=== PATIENT | male | born 1955 | race Caucasian/White ===

== ENCOUNTER 2018-07-09 13:07 | Observation (INO) | payer BC, OTHER ==
[2018-07-09] MEDS ORDERED: Sodium Chloride 0.9% 1,000 ML IV ONE (13:23)
--- NOTE | 2018-07-09 13:29 | EDM.PDOC ---
ED HPI GENERAL MEDICAL PROBLEM - General Chief Complaint: General Stated Complaint: CHEST PAIN Time Seen by Provider: 07/09/18 13:21 Source of Information: Reports: Patient History Limitations: Reports: No Limitations - History of Present Illness INITIAL COMMENTS - FREE TEXT/NARRATIVE: Patient is a 63-year-old gentleman who presents to the emergency department this afternoon via EMS secondary to a complaint of chest pain. Patient states that approximately 3 a.m. today, he woke up with chills and sweating, and decided to take a bath for relief. Patient states he was in the bathroom about 1 hour. Symptoms did not resolve. After that he noticed isolated chest pain to his left chest. Pain described as sharp and constant. Patient decided to take 1 nitroglycerin with mild relief. But then discomfort returned. Patient decided to contact EMS. Patient denies fever, shortness of breath, headache, pain radiation to neck or left upper extremity, abdominal pain, nausea, vomiting , diarrhea, blood in stool, out of country travel, or any change in medication. Patient has history of MO with placement of 5 cardiac stents over the past few years. Onset: Today, Sudden Onset Date: 07/09/18 Onset Time: 03:00 Duration: Improving Location: Reports: Chest Quality: Reports: Sharp Severity: Mild Improves with: Reports: Medication Worsens with: Reports: None Associated Symptoms: Reports: Diaphoresis Treatments COMPENSATION AND BENEFITS ADVISOR: Reports: Aspirin, Nitroglycerin, Oxygen Left Middle Chest Pain Score (Numeric/FACES): 5 - Related Data Allergies Allergy/AdvReac Type Severity Reaction Status Date / Time No Known Drug Allergies Allergy Other Verified 07/09/18 13:22 Home Meds: Home Meds Aspirin [Halfprin] 81 mg PO DAILY 07/09/18 [History] Calcium Carb & Citrate/Vit D3 [Citracal + D ER] 1 tab PO DAILY 07/09/18 [History ] Cholecalciferol (Vitamin D3) [Vitamin D3] 2,000 unit PO DAILY 07/09/18 [History] Cinnamon Bark [Cinnamon] 1,000 mg PO DAILY 07/09/18 [History] Empagliflozin [Jardiance] 10 mg PO DAILY 07/09/18 [History] Ferrous Sulfate 325 mg PO DAILY 07/09/18 [History] Insulin Glarg,Human.Rec.Analog [Lantus Solostar] 20 unit SUBCUT DAILY 07/09/18 [ History] Lisinopril 5 mg PO DAILY 07/09/18 [History] Magnesium Oxide 400 mg PO DAILY 07/09/18 [History] Multivit with Calcium,Iron,Min [One Daily Women's] 1 tab PO DAILY 07/09/18 [ History] Nitroglycerin 0.4 mg SL ASDIRECTED 07/09/18 [History] Omeprazole 20 mg PO DAILY 07/09/18 [History] Ozempic 0.5 mg SQ RAMACHANDRAN 07/09/18 [History] Pyridoxine HCl [Vitamin B-6] 100 mg PO DAILY 07/09/18 [History] Vitamin B Complex [B Complex] 1 tab PO DAILY 07/09/18 [History] Vitamin E Mixed [Vitamin E] 400 unit PO DAILY 07/09/18 [History] Zinc Gluconate [Elemental Zinc] 60 mg PO DAILY 07/09/18 [History] atorvaSTATin [Lipitor] 10 mg PO DAILY 07/09/18 [History] glipiZIDE [Glucotrol] 5 mg PO DAILY 07/09/18 [History] metFORMIN HCl [Glucophage XR] 2,000 mg PO DAILY 07/09/18 [History] ED ROS GENERAL - Review of Systems Review Of Systems: ROS reveals no pertinent complaints other than HPI. Constitutional: Reports: No Symptoms HEENT: Reports: No Symptoms Respiratory: Reports: No Symptoms Cardiovascular: Reports: Chest Pain Endocrine: Reports: No Symptoms GI/Abdominal: Reports: No Symptoms : Reports: No Symptoms Musculoskeletal: Reports: No Symptoms Skin: Reports: No Symptoms Neurological: Reports: No Symptoms Psychiatric: Reports: No Symptoms Hematologic/Lymphatic: Reports: No Symptoms Immunologic: Reports: No Symptoms ED EXAM, GENERAL - Physical Exam Exam: See Below Exam Limited By: No Limitations General Appearance: Alert, WD/WN, No Apparent Distress Nose: Normal Inspection, Normal Mucosa, No Blood Throat/Mouth: Normal Inspection, Normal Oropharynx, No Airway Compromise Head: Atraumatic, Normocephalic Neck: Normal Inspection, Supple, Non-Tender Respiratory/Chest: No Respiratory Distress, Lungs Clear, Normal Breath Sounds, No Accessory Muscle Use Cardiovascular: Regular Rate, Rhythm, No Murmur, No Rub GI/Abdominal: Normal Bowel Sounds, Soft, Non-Tender, No Organomegaly, No Distention, No Abnormal Bruit, No Mass Back Exam: Normal Inspection. No: CVA Tenderness (L), CVA Tenderness (R) Extremities: Normal Inspection, No Pedal Edema Neurological: Alert, Oriented, Normal Cognition Psychiatric: Normal Affect, Normal Mood Skin Exam: Warm, Dry, Intact, Normal Color, No Rash Course - Vital Signs Last Recorded V/S: Last Vital Signs Temp 99.9 F 07/09/18 13:18 Pulse 81 07/09/18 14:44 Resp 19 07/09/18 14:44 BP 102/46 L 07/09/18 14:44 Pulse Ox 98 07/09/18 14:44 - Orders/Labs/Meds Orders: Active Orders 24 hr Category Date Time Status EKG Documentation Completion [RC] ASDIRECTED Care 07/09/18 13:23 Ordered Peripheral IV Care [RC] . DIRECTED Care 07/09/18 13:23 Ordered CULTURE BLOOD [BC] Stat Lab 07/09/18 14:16 Ordered CULTURE BLOOD [BC] Stat Lab 07/09/18 14:16 Ordered Sodium Chloride 0.9% [Saline Flush] Med 07/09/18 13:23 Ordered 10 ml FLUSH Q8HR PRN Blood Culture x2 Reflex Set [OM.PC] Stat Oth 07/09/18 14:16 Ordered Peripheral IV Insertion Adult [OM.PC] Routine Oth 07/09/18 13:23 Ordered Medication Orders Sodium Chloride (Saline Flush) 10 ml FLUSH Q8HR PRN PRN Reason: keep vein open Labs: Laboratory Tests 07/09/18 07/09/18 07/09/18 Range/Units 13:20 13:20 13:20 WBC 11.91 H (5.00-10.00) 10^3/uL RBC 4.52 (4.50-6.00) 10^6/uL Hgb 14.1 (13.0-17.0) g/dL Hct 39.1 L (40.0-52.0) % MCV 86.5 (82.0-92.0) fL MCH 31.2 H (27.0-31.0) pg MCHC 36.1 H (32.0-36.0) g/dL RDW 11.9 (11.5-14.5) % Plt Count 122 L (150-400) 10^3/uL MPV 10.7 H (7.4-10.4) fL Immature Gran % (Auto) 0.2 (0.0-5.0) % Neut % (Auto) 89.3 H (50.0-70.0) % Lymph % (Auto) 2.9 L (20.0-40.0) % [place] % (Auto) 7.4 (2.0-8.0) % Eos % (Auto) 0.1 L (1.0-3.0) % Baso % (Auto) 0.1 (0.0-1.0) % Immature Gran # (Auto) 0.02 (0.00-0.50) 10^3/uL Neut # (Auto) 10.65 H (2.50-7.00) 10^3/uL Lymph # (Auto) 0.34 L (1.00-4.00) 10^3/uL [place] # (Auto) 0.88 H (0.10-0.80) 10^3/uL Eos # (Auto) 0.01 L (0.10-0.30) 10^3/uL Baso # (Auto) 0.01 (0.00-0.10) 10^3/uL PT 10.5 (8.9-11.4) SEC INR 1.0 (0.9-1.1) APTT 22.0 L (23.1-31.3) SEC Sodium 143 (136-145) mmol/L Potassium 3.7 (3.3-5.3) mmol/L Chloride 106 (98-115) mmol/L Carbon Dioxide 26.6 (21.0-32.0) mmol/L Anion Gap 14.1 (5-15) mmol/L BUN 19 (6-25) mg/dL Creatinine 1.17 (0.51-1.17) mg/dL Est Cr Clr Drug Dosing 69.09 mL/min Estimated GFR (MDRD) > 60 mL/min Glucose 153 H (75 - 99) mg/dL Calcium 8.7 (8.7-10.3) mg/dL Total Bilirubin 1.0 (0.2-1.0) mg/dL AST 33 (15-37) U/L ALT 27 (12-78) U/L Alkaline Phosphatase 57 (46-116) IU/L CK-MB (CK-2) 1.30 (0.00-4.30) ng/mL Troponin I 0.07 (0.00-0.070) ng/mL Total Protein 6.2 L (6.4-8.2) g/dL Albumin 3.40 (3.00-4.80) g/dL Lipase 79 (73-393) U/L Meds: Medications Generic Name Dose Route Start Last Admin Trade Name Freq PRN Reason Stop Dose Admin Sodium Chloride 10 ml 07/09/18 13:23 Saline Flush FLUSH Q8HR PRN keep vein open Discontinued Medications Generic Name Dose Route Start Last Admin Trade Name Freq PRN Reason Stop Dose Admin Acetaminophen 650 mg 07/09/18 14:21 Tylenol PO 07/09/18 14:22 NOW ONE Azithromycin 500 mg 07/09/18 14:16 Zithromax PO 07/09/18 14:17 ONETIME ONE Ceftriaxone Sodium 1 gm 07/09/18 14:16 Rocephin IVPUSH 07/09/18 14:17 ONETIME ONE Sodium Chloride 1,000 mls @ 999 mls/hr 07/09/18 13:23 07/09/18 13:28 Normal Saline IV 07/09/18 14:23 999 mls/hr .BOLUS ONE Administration - Radiology Interpretation Free Text/Narrative:: Chest x-ray shows moderate left lung infiltrates - Re-Assessments/Exams Free Text/Narrative Re-Assessment/Exam: 07/09/18 14:54 patient afebrile, vital signs stable, 1 g Rocephin IV and 500 mg by mouth Zithromax given. Discussed case with Dr. Walter valles and patient will be admitted for observation and followed. Departure - Departure Time of Disposition: 14:53 Disposition: Refer to Observation Condition: Fair Clinical Impression: Pneumonia - Discharge Information Referrals: PCP,Not In Area [Primary Care Provider] - Forms: ED Department Discharge - My Orders Last 24 Hours: My Active Orders 07/09/18 13:23 EKG Documentation Completion [RC] ASDIRECTED Peripheral IV Care [RC] . DIRECTED Sodium Chloride 0.9% [Saline Flush] 10 ml FLUSH Q8HR PRN Peripheral IV Insertion Adult [OM.PC] Routine 07/09/18 14:16 CULTURE BLOOD [BC] Stat CULTURE BLOOD [BC] Stat Blood Culture x2 Reflex Set [OM.PC] Stat - Assessment/Plan Last 24 Hours: My Active Orders 07/09/18 13:23 EKG Documentation Completion [RC] ASDIRECTED Peripheral IV Care [RC] . DIRECTED Sodium Chloride 0.9% [Saline Flush] 10 ml FLUSH Q8HR PRN Peripheral IV Insertion Adult [OM.PC] Routine 07/09/18 14:16 CULTURE BLOOD [BC] Stat CULTURE BLOOD [BC] Stat Blood Culture x2 Reflex Set [OM.PC] Stat Assessment:: Pneumonia Plan: Admit to observation for [facility]. Dr. Walter valles
[2018-07-09 13:56] LABS: ANION GAP 14.1 mmol/L (5-15); CHLORIDE,CL 106 mmol/L (98-115); SODIUM,NA 143 mmol/L (136-145)
--- NOTE | 2018-07-09 14:09 | CR ---
[id number] RAD/RAD Chest PA or AP 1V EXAM: FRONTAL CHEST INDICATION: Chest pain. COMPARISON: February 10, 2009. DISCUSSION: Mild to moderate left mid and lower lung infiltrates suggestive of pneumonia. Unless clinically indicated sooner, a 6 week follow-up examination is suggested after treatment to exclude other underlying pathology. Mild hypoinflation. Normal heart size. IMPRESSION: 1. Mild to moderate left lung infiltrates. Bj Leung MD 07/09/18 1070 Thank you for allowing us to participate in the care of your patient.
[2018-07-09] MEDS ORDERED: cefTRIAXone 1 GM Vial IVPUSH ONE (14:16)
[2018-07-09] MEDS ORDERED: Azithromycin 250 MG Tab PO ONE (14:16)
[2018-07-09] MEDS ORDERED: Acetaminophen 325 MG Tab PO ONE (14:21)
[2018-07-09] MEDS: Sodium Chloride 0.9% 10 ML Syringe FLUSH PRN (15:26)
[2018-07-09] MEDS ORDERED: Nitroglycerin 0.4 MG Tab.SL SL PRN (18:30)
[2018-07-09] MEDS ORDERED: Lidocaine 2% 100 MG/5 ML Syringe IVPUSH PRN (22:56)
[2018-07-09] MEDS ORDERED: EPINEPHrine 1:10,000 1 MG/10 ML Syringe IVPUSH PRN (22:56)
[2018-07-09] MEDS ORDERED: Atropine 0.1 MG/ML 10 ML Syringe IVPUSH PRN (22:56)
[2018-07-10] MEDS ORDERED: Omeprazole 20 MG Cap.CR PO SCH (07:30)
[2018-07-10 08:06] LABS: ANION GAP 12.1 mmol/L (5-15); CHLORIDE,CL 105 mmol/L (98-115); SODIUM,NA 142 mmol/L (136-145)
[2018-07-10] MEDS: Insulin Aspart 100 Units/ML 3 ML Pen SUBCUT SCH ×2 (08:19→12:13)
[2018-07-10] MEDS: Sodium Chloride 0.9% 10 ML Syringe FLUSH PRN (08:33)
[2018-07-10] MEDS ORDERED: Magnesium Oxide 500 MG Tab PO SCH (09:00)
[2018-07-10] MEDS ORDERED: Lisinopril 5 MG Tab PO SCH (09:00)
[2018-07-10] MEDS ORDERED: Insulin Detemir 100 Units/ML 3 ML Pen SUBCUT SCH (09:00)
[2018-07-10] MEDS ORDERED: Non-Formulary Medication 1 Each (Magnesium Oxide [Magnesium Oxide] 400 MG) PO SCH (09:00)
[2018-07-10] MEDS ORDERED: Aspirin 81 MG Tab.EC PO SCH (09:00)
[2018-07-10] MEDS ORDERED: atorvaSTATin 10 MG Tab PO SCH (09:00)
[2018-07-10] MEDS ORDERED: Non-Formulary Medication 1 Each (Empagliflozin [Jardiance] 10 MG) PO SCH (09:00)
[2018-07-10] MEDS ORDERED: Ferrous Sulfate 325 MG Tab PO SCH (09:00)
--- NOTE | 2018-07-10 11:25 | PCM.HP ---
H&P History of Present Illness - General Date of Service: 07/10/18 Admit Problem/Dx: Admission Diagnosis/Problem Admission Diagnosis/Problem Pneumonia Source of Information: Patient, Old Records, RN History Limitations: Reports: No Limitations - History of Present Illness Initial Comments - Free Text/Narative: 63-year-old gentleman who presents to the emergency department this afternoon via EMS on the day of admission initially due to chest pain. Is diagnosed with pneumonia and was admitted. Patient stated he woke up assessor hours Thinking he was having a hypoglycemic reaction because he was having some diaphoresis, chest pain, extreme weakness, took his blood sugar it was 220, took long bath to warm up. He described his chest pain as sharp and constant-- took 1 nitroglycerin with mild relief, however then discomfort returned necessitating him calling EMS. Patient denies fever, shortness of breath, headache, pain radiation to neck or left upper extremity, abdominal pain, nausea , vomiting, diarrhea, blood in stool, out of country travel, or any change in medication. Patient has history of TX with placement of 5 cardiac stents over the past few years. Left Middle Chest Pain Score (Numeric/FACES): 7 - Related Data Allergies/Adverse Reactions: Allergies Allergy/AdvReac Type Severity Reaction Status Date / Time No Known Drug Allergies Allergy Other Verified 07/09/18 13:22 Home Medications: Home Meds Aspirin [Halfprin] 81 mg PO DAILY 07/09/18 [History] Calcium Carb & Citrate/Vit D3 [Citracal + D ER] 1 tab PO DAILY 07/09/18 [History ] Cholecalciferol (Vitamin D3) [Vitamin D3] 2,000 unit PO DAILY 07/09/18 [History] Cinnamon Bark [Cinnamon] 1,000 mg PO DAILY 07/09/18 [History] Empagliflozin [Jardiance] 10 mg PO DAILY 07/09/18 [History] Ferrous Sulfate 325 mg PO DAILY 07/09/18 [History] Insulin Glarg,Human.Rec.Analog [Lantus Solostar] 20 unit SUBCUT DAILY 07/09/18 [ History] Lisinopril 5 mg PO DAILY 07/09/18 [History] Magnesium Oxide 400 mg PO DAILY 07/09/18 [History] Multivit with Calcium,Iron,Min [One Daily Women's] 1 tab PO DAILY 07/09/18 [ History] Nitroglycerin 0.4 mg SL ASDIRECTED 07/09/18 [History] Omeprazole 20 mg PO DAILY 07/09/18 [History] Ozempic 0.5 mg SQ RAMACHANDRAN 07/09/18 [History] Pyridoxine HCl [Vitamin B-6] 100 mg PO DAILY 07/09/18 [History] Vitamin B Complex [B Complex] 1 tab PO DAILY 07/09/18 [History] Vitamin E Mixed [Vitamin E] 400 unit PO DAILY 07/09/18 [History] Zinc Gluconate [Elemental Zinc] 60 mg PO DAILY 07/09/18 [History] atorvaSTATin [Lipitor] 10 mg PO DAILY 07/09/18 [History] glipiZIDE [Glucotrol] 5 mg PO DAILY 07/09/18 [History] metFORMIN HCl [Glucophage XR] 2,000 mg PO DAILY 07/09/18 [History] Past Medical History HEENT History: Reports: Cataract Cardiovascular History: Reports: Hypertension, TX, Stents Respiratory History: Reports: None Gastrointestinal History: Reports: GERD, GI Bleed Genitourinary History: Reports: None Musculoskeletal History: Reports: Arthritis Neurological History: Reports: None Endocrine/Metabolic History: Reports: Diabetes, Type II Hematologic History: Reports: Blood Transfusion(s) Immunologic History: Reports: None Oncologic (Cancer) History: Reports: Other (See Below) Other Oncologic History: Melanoma - Infectious Disease History Infectious Disease History: Reports: Chicken Pox, Measles - Past Surgical History HEENT Surgical History: Reports: Cataract Surgery Cardiovascular Surgical History: Reports: Coronary Artery Stent Respiratory Surgical History: Reports: None GI Surgical History: Reports: Cholecystectomy, Colonoscopy, EGD, Other (See Below) Other GI Surgeries/Procedures: Gastric bypass Neurological Surgical History: Reports: None Musculoskeletal Surgical History: Reports: Other (See Below) Other Musculoskeletal Surgeries/Procedures:: Trigger finger surgery to right Dermatological Surgical History: Reports: None Social & Family History - Family History Family Medical History: Noncontributory - Tobacco Use Smoking Status *Q: Never Smoker - Caffeine Use Caffeine Use: Reports: Coffee, Soda, Tea - Alcohol Use Days Per Week of Alcohol Use: 1 Number of Drinks Per Day: 3 Total Drinks Per Week: 3 - Recreational Drug Use Recreational Drug Use: No H&P Review of Systems - Review of Systems: Review Of Systems: See Below General: Reports: No Symptoms HEENT: Reports: No Symptoms Pulmonary: Reports: No Symptoms Cardiovascular: Reports: No Symptoms Gastrointestinal: Reports: No Symptoms Genitourinary: Reports: No Symptoms Musculoskeletal: Reports: No Symptoms Skin: Reports: No Symptoms Psychiatric: Reports: No Symptoms Neurological: Reports: No Symptoms Hematologic/Lymphatic: Reports: No Symptoms Immunologic: Reports: No Symptoms Exam - Exam Exam: See Below - Vital Signs Vital Signs: Last Vital Signs Temp 98.1 F 07/10/18 06:49 Pulse 65 07/10/18 06:49 Resp 20 07/10/18 06:49 BP 109/64 07/10/18 08:31 Pulse Ox 96 07/10/18 07:40 Weight: 181 lb 14.4 oz - Exam Quality Assessment: No: Supplemental Oxygen, DVT Prophylaxis General: Alert, Oriented, 4 HEENT: Mucosa Moist & [place] Neck: Supple, Trachea Midline, 2 Lungs: Clear to Auscultation, Normal Respiratory Effort Cardiovascular: Regular Rate, Regular Rhythm GI/Abdominal Exam: Normal Bowel Sounds, Soft, No Distention (Male) Exam: Deferred Rectal (Males) Exam: Deferred Back Exam: No: CVA Tenderness (L) Extremities: No: Pedal Edema Skin: Warm, Dry, Intact Neurological: Cranial Nerves Intact, Normal Speech, Normal Tone Neuro Extensive - Mental Status: Alert Neuro Extensive - Motor, Sensory, Reflexes: CN II-XII Intact Psychiatric: Alert, Normal Affect, Normal Mood - Patient Data Lab Results Last 24 hrs: Laboratory Results - last 24 hr 07/09/18 07/09/18 07/09/18 Range/Units 13:20 13:20 13:20 WBC 11.91 H (5.00-10.00) 10^3/uL RBC 4.52 (4.50-6.00) 10^6/uL Hgb 14.1 (13.0-17.0) g/dL Hct 39.1 L (40.0-52.0) % MCV 86.5 (82.0-92.0) fL MCH 31.2 H (27.0-31.0) pg MCHC 36.1 H (32.0-36.0) g/dL RDW 11.9 (11.5-14.5) % Plt Count 122 L (150-400) 10^3/uL MPV 10.7 H (7.4-10.4) fL Immature Gran % (Auto) 0.2 (0.0-5.0) % Neut % (Auto) 89.3 H (50.0-70.0) % Lymph % (Auto) 2.9 L (20.0-40.0) % [place] % (Auto) 7.4 (2.0-8.0) % Eos % (Auto) 0.1 L (1.0-3.0) % Baso % (Auto) 0.1 (0.0-1.0) % Immature Gran # (Auto) 0.02 (0.00-0.50) 10^3/uL Neut # (Auto) 10.65 H (2.50-7.00) 10^3/uL Lymph # (Auto) 0.34 L (1.00-4.00) 10^3/uL [place] # (Auto) 0.88 H (0.10-0.80) 10^3/uL Eos # (Auto) 0.01 L (0.10-0.30) 10^3/uL Baso # (Auto) 0.01 (0.00-0.10) 10^3/uL PT 10.5 (8.9-11.4) SEC INR 1.0 (0.9-1.1) APTT 22.0 L (23.1-31.3) SEC Sodium 143 (136-145) mmol/L Potassium 3.7 (3.3-5.3) mmol/L Chloride 106 (98-115) mmol/L Carbon Dioxide 26.6 (21.0-32.0) mmol/L Anion Gap 14.1 (5-15) mmol/L BUN 19 (6-25) mg/dL Creatinine 1.17 (0.51-1.17) mg/dL Est Cr Clr Drug Dosing 69.09 mL/min Estimated GFR (MDRD) > 60 mL/min Glucose 153 H (75 - 99) mg/dL POC Glucose (74-106) mg/dl Calcium 8.7 (8.7-10.3) mg/dL Total Bilirubin 1.0 (0.2-1.0) mg/dL AST 33 (15-37) U/L ALT 27 (12-78) U/L Alkaline Phosphatase 57 (46-116) IU/L CK-MB (CK-2) 1.30 (0.00-4.30) ng/mL Troponin I 0.07 (0.00-0.070) ng/mL Total Protein 6.2 L (6.4-8.2) g/dL Albumin 3.40 (3.00-4.80) g/dL Lipase 79 (73-393) U/L 07/09/18 07/09/18 07/10/18 Range/Units 19:02 22:17 07:10 WBC 15.98 H (5.00-10.00) 10^3/uL RBC 4.46 L (4.50-6.00) 10^6/uL Hgb 13.8 (13.0-17.0) g/dL Hct 39.6 L (40.0-52.0) % MCV 88.8 (82.0-92.0) fL MCH 30.9 (27.0-31.0) pg MCHC 34.8 (32.0-36.0) g/dL RDW 12.8 (11.5-14.5) % Plt Count 133 L (150-400) 10^3/uL MPV 11.0 H (7.4-10.4) fL Immature Gran % (Auto) 2.1 (0.0-5.0) % Neut % (Auto) 85.4 H (50.0-70.0) % Lymph % (Auto) 8.4 L (20.0-40.0) % [place] % (Auto) 3.4 (2.0-8.0) % Eos % (Auto) 0.6 L (1.0-3.0) % Baso % (Auto) 0.1 (0.0-1.0) % Immature Gran # (Auto) 0.34 (0.00-0.50) 10^3/uL Neut # (Auto) 13.63 H (2.50-7.00) 10^3/uL Lymph # (Auto) 1.34 (1.00-4.00) 10^3/uL [place] # (Auto) 0.55 (0.10-0.80) 10^3/uL Eos # (Auto) 0.10 (0.10-0.30) 10^3/uL Baso # (Auto) 0.02 (0.00-0.10) 10^3/uL PT (8.9-11.4) SEC INR (0.9-1.1) APTT (23.1-31.3) SEC Sodium (136-145) mmol/L Potassium (3.3-5.3) mmol/L Chloride (98-115) mmol/L Carbon Dioxide (21.0-32.0) mmol/L Anion Gap (5-15) mmol/L BUN (6-25) mg/dL Creatinine (0.51-1.17) mg/dL Est Cr Clr Drug Dosing mL/min Estimated GFR (MDRD) mL/min Glucose (75 - 99) mg/dL POC Glucose 233 H (74-106) mg/dl Calcium (8.7-10.3) mg/dL Total Bilirubin (0.2-1.0) mg/dL AST (15-37) U/L ALT (12-78) U/L Alkaline Phosphatase (46-116) IU/L CK-MB (CK-2) (0.00-4.30) ng/mL Troponin I 0.06 (0.00-0.070) ng/mL Total Protein (6.4-8.2) g/dL Albumin (3.00-4.80) g/dL Lipase (73-393) U/L 07/10/18 07/10/18 Range/Units 07:10 07:20 WBC (5.00-10.00) 10^3/uL RBC (4.50-6.00) 10^6/uL Hgb (13.0-17.0) g/dL Hct (40.0-52.0) % MCV (82.0-92.0) fL MCH (27.0-31.0) pg MCHC (32.0-36.0) g/dL RDW (11.5-14.5) % Plt Count (150-400) 10^3/uL MPV (7.4-10.4) fL Immature Gran % (Auto) (0.0-5.0) % Neut % (Auto) (50.0-70.0) % Lymph % (Auto) (20.0-40.0) % [place] % (Auto) (2.0-8.0) % Eos % (Auto) (1.0-3.0) % Baso % (Auto) (0.0-1.0) % Immature Gran # (Auto) (0.00-0.50) 10^3/uL Neut # (Auto) (2.50-7.00) 10^3/uL Lymph # (Auto) (1.00-4.00) 10^3/uL [place] # (Auto) (0.10-0.80) 10^3/uL Eos # (Auto) (0.10-0.30) 10^3/uL Baso # (Auto) (0.00-0.10) 10^3/uL PT (8.9-11.4) SEC INR (0.9-1.1) APTT (23.1-31.3) SEC Sodium 142 (136-145) mmol/L Potassium 4.3 (3.3-5.3) mmol/L Chloride 105 (98-115) mmol/L Carbon Dioxide 29.2 (21.0-32.0) mmol/L Anion Gap 12.1 (5-15) mmol/L BUN 21 (6-25) mg/dL Creatinine 1.05 (0.51-1.17) mg/dL Est Cr Clr Drug Dosing 76.98 mL/min Estimated GFR (MDRD) > 60 mL/min Glucose 146 H (75 - 99) mg/dL POC Glucose 140 H (74-106) mg/dl Calcium 8.8 (8.7-10.3) mg/dL Total Bilirubin (0.2-1.0) mg/dL AST (15-37) U/L ALT (12-78) U/L Alkaline Phosphatase (46-116) IU/L CK-MB (CK-2) (0.00-4.30) ng/mL Troponin I 0.07 (0.00-0.070) ng/mL Total Protein (6.4-8.2) g/dL Albumin (3.00-4.80) g/dL Lipase (73-393) U/L Result Diagrams: 07/10/18 07:10 07/10/18 07:10 Problem List Initiated/Reviewed/Updated: Yes Orders Last 24hrs: Active Orders 24 hr Category Date Time Status Patient Status [ADT] Routine ADT 07/09/18 14:57 Ordered Blood Glucose Check, Bedside [RC] TIDMEALS Care 07/09/18 18:22 Active Oxygen Therapy [RC] PRN Care 07/09/18 14:57 Active Peripheral IV Care [RC] 0900,2100 Care 07/09/18 13:23 Active Telemetry Monitoring [Cardiac Monitoring] [RC] 0300, Care 07/09/18 18:23 Active 0700,1100,1500,1900,2300 VTE/DVT Education [RC] PER UNIT ROUTINE Care 07/09/18 14:57 Active Vital Signs [RC] 0700,1100,1500,1900,2300,0300 Care 07/09/18 14:57 Active ADA Diabetic [[place] [employer] Diet] [DIET Diet 07/10/18 Breakfast Active ] CULTURE BLOOD [BC] Stat Lab 07/09/18 14:25 Received CULTURE BLOOD [BC] Stat Lab 07/09/18 15:15 Received Aspirin [Halfprin] Med 07/10/18 09:00 Active 81 mg PO DAILY Atropine [Atropine 0.1 MG/ML] Med 07/09/18 22:56 Active 0 mg IVPUSH ASDIRECTED PRN EPINEPHrine [EPINEPHrine 1:10,000] Med 07/09/18 22:56 Active 1 mg IVPUSH ASDIRECTED PRN Empagliflozin [Jardiance] Med 07/10/18 09:00 Pending 10 mg PO DAILY Ferrous Sulfate Med 07/10/18 09:00 Active 325 mg PO DAILY Insulin Aspart [NovoLOG] Med 07/10/18 08:00 Active See Protocol SUBCUT TIDMEALS Insulin Detemir [Levemir] Med 07/10/18 09:00 Active 20 unit SUBCUT DAILY Lidocaine 2% [Xylocaine 2%] Med 07/09/18 22:56 Active 0 mg IVPUSH ASDIRECTED PRN Lisinopril [Prinivil] Med 07/10/18 09:00 Active 5 mg PO DAILY Magnesium Oxide Med 07/10/18 09:00 Active 500 mg PO DAILY Nitroglycerin [Nitrostat] Med 07/09/18 18:30 Active 0.4 mg SL ASDIRECTED PRN Omeprazole Med 07/10/18 07:30 Active 20 mg PO ACBREAKFAST Ozempic Med 07/14/18 18:20 Pending 0.5 mg SQ RAMACHANDRAN Sodium Chloride 0.9% [Saline Flush] Med 07/09/18 13:23 Active 10 ml FLUSH Q8HR PRN atorvaSTATin [Lipitor] Med 07/10/18 09:00 Active 10 mg PO DAILY cefTRIAXone [Rocephin] Med 07/10/18 11:45 Once 1 gm IVPUSH ONETIME ONE Blood Culture x2 Reflex Set [OM.PC] Stat Ot 07/09/18 14:16 Ordered Peripheral IV Insertion Adult [OM.PC] Routine Oth 07/09/18 13:23 Ordered Resuscitation Status Routine Resus Stat 07/09/18 14:57 Ordered Medication Orders Aspirin (Halfprin) 81 mg PO DAILY [facility] Last Admin: 07/10/18 08:31 Dose: 81 mg Atorvastatin Calcium (Lipitor) 10 mg PO DAILY [facility] Last Admin: 07/10/18 08:31 Dose: 10 mg Atropine Sulfate (Atropine 0.1 Mg/Ml) 0 mg IVPUSH ASDIRECTED PRN PRN Reason: Heart Ceftriaxone Sodium (Rocephin) 1 gm IVPUSH ONETIME ONE Stop: 07/10/18 11:46 Epinephrine HCl (Epinephrine 1:10,000) 1 mg IVPUSH ASDIRECTED PRN PRN Reason: Heart Ferrous Sulfate (Ferrous Sulfate) 325 mg PO DAILY [facility] Last Admin: 07/10/18 08:30 Dose: 325 mg Insulin Aspart (Novolog) 0 unit SUBCUT TIDMEALS [facility]; Protocol Last Admin: 07/10/18 08:19 Dose: Not Given Insulin Detemir (Levemir) 20 unit SUBCUT DAILY [facility] Last Admin: 07/10/18 08:31 Dose: 20 units Lidocaine HCl (Xylocaine 2%) 0 mg IVPUSH ASDIRECTED PRN PRN Reason: Heart Lisinopril (Prinivil) 5 mg PO DAILY [facility] Last Admin: 07/10/18 08:31 Dose: 5 mg Magnesium Oxide (Magnesium Oxide) 500 mg PO DAILY [facility] Last Admin: 07/10/18 08:30 Dose: 500 mg Nitroglycerin (Nitrostat) 0.4 mg SL ASDIRECTED PRN PRN Reason: Chest Pain Non-Formulary Medication (Empagliflozin [Jardiance]) 10 mg PO DAILY [facility] Non-Formulary Medication (Ozempic) 0.5 mg SQ RAMACHANDRAN [facility] Omeprazole (Omeprazole) 20 mg PO ACBREAKFAST [facility] Last Admin: 07/10/18 07:22 Dose: 20 mg Sodium Chloride (Saline Flush) 10 ml FLUSH Q8HR PRN PRN Reason: keep vein open Last Admin: 07/10/18 08:33 Dose: 10 ml Admin: 07/09/18 15:26 Dose: 10 ml Assessment/Plan Comment:: please use this history and physical as a combined H&P and discharge summary. BOTH WERE COMPLETED SAME DAY history of present illness 63-year-old gentleman who presents to the emergency department this afternoon via EMS on the day of admission initially due to chest pain. Is diagnosed with pneumonia and was admitted. Patient stated he woke up assessor hours Thinking he was having a hypoglycemic reaction because he was having some diaphoresis, chest pain, extreme weakness, took his blood sugar it was 220, took long bath to warm up. He described his chest pain as sharp and constant-- took 1 nitroglycerin with mild relief, however then discomfort returned necessitating him calling EMS. Patient denies fever, shortness of breath, headache, pain radiation to neck or left upper extremity, abdominal pain, nausea , vomiting, diarrhea, blood in stool, out of country travel, or any change in medication. Patient has history of TX with placement of 5 cardiac stents over the past few years. pertinent ED findings White count 12,000 Initial troponin negative Chest x-ray left lung infiltrate EKG, no concerning STEMI, no changes from previous Primary and final diagnosis Pneumonia, community-acquired, left lung Rule out TX, has been ruled out, hx of coronary stents hospital course Patient stayed overnight in the hospital, he received azithromycin and Rocephin. The next morning on rounds he felt 100% WITH NO CHEST PAIN< NO SHORTNESS OF BREATH< NO SPUTUM PRODUCTION<WAS DRESSED AND WAS READY TO BE DISCHARGE> He had no nausea vomiting or diarrhea. his white count did elevate to approximately 15,000 with neutrophilia was decreasing. troponins were trended and were normal 3. Patient tolerated his meals without vomiting. He is able to take oral antibiotics. blood cultures were drawn prior to the first antibiotic, pending upon discharge disposition Patient is in stable condition, ready to be discharge, discussion with him concerning follow-up tomorrow with Rocephin injection and follow-up with provider [place] [facility]. Appointments have been made. Rocephin ordered through [facility]. continue with azithromycin. He is to report any, diaphoresis or chest pain. Follow-up provider assess blood culture
[2018-07-10] MEDS ORDERED: cefTRIAXone 1 GM Vial IVPUSH ONE (11:45)
[2018-07-14] MEDS ORDERED: OZEMPIC 0.5 MG SQ SCH (18:20)
== END 2018-07-10 12:47 | disposition home or self-care (01) ==
LOC: KA.ED 13:07 → KA.MS 15:00
PROVIDERS: ADMIT Physician Assistant Surgical; ATTEND Family Medicine
DX: J18.1 Lobar pneumonia, unspecified organism (principal); I10 Essential (primary) hypertension; I25.2 Old myocardial infarction; E11.9 Type 2 diabetes mellitus without complications; K21.9 Gastro-esophageal reflux disease without esophagitis; M19.90 Unspecified osteoarthritis, unspecified site; Z95.5 Presence of coronary angioplasty implant and graft; Z79.4 Long term (current) use of insulin; Z79.899 Other long term (current) drug therapy
CPT/HCPCS: 36415; 71045; 80048; 80053; 82553; 82962; 83690; 84484; 85025; 85610; 85730; 87040; 93005; 96361; 96374; 96376; 99285; A9270; G0378; J0696; J1815; J7030

== ENCOUNTER 2018-07-29 07:08 | Emergency (ER) | payer OTHER ==
--- NOTE | 2018-07-29 07:42 | EDM.PDOC ---
ED HPI GENERAL MEDICAL PROBLEM - General Chief Complaint: Respiratory Problem Stated Complaint: WEAKNESS,SOB Time Seen by Provider: 07/29/18 07:30 Source of Information: Reports: Patient, Family History Limitations: Reports: No Limitations - History of Present Illness INITIAL COMMENTS - FREE TEXT/NARRATIVE: 63 YO WM presents to ER complaining of feeling chilled with weakness this am around 4am. Pt reports he got in the shower to warm up but started to feel worse prompting ER visit. Pt had similar symptoms 3 weeks ago and was diagnosed with CAP- left upper lobe. Pt reports productive cough which started yesterday with mild chest discomfort and mild shortness of breath. Pt denies diaphoresis, nausea/vomiting or lightheadedness. Pt reports he feels better than he did 3 weeks ago at which time he was hypoxic and much weaker. Pt was admitted for IV antibiotics at the time. Onset Date: 07/29/18 Duration: Hour(s): (4) Location: Reports: Chest Quality: Reports: Dull Severity: Mild Improves with: Reports: Rest Worsens with: Reports: Breathing, Movement Associated Symptoms: Reports: cough w sputum, Fever/Chills, Malaise, Shortness of Breath. Denies: Nausea/Vomiting - Related Data Allergies Allergy/AdvReac Type Severity Reaction Status Date / Time No Known Drug Allergies Allergy Other Verified 07/29/18 07:14 Home Meds: Home Meds Aspirin [Halfprin] 81 mg PO DAILY 07/09/18 [History] Calcium Carb & Citrate/Vit D3 [Citracal + D ER] 1 tab PO DAILY 07/09/18 [History ] Cholecalciferol (Vitamin D3) [Vitamin D3] 2,000 unit PO DAILY 07/09/18 [History] Cinnamon Bark [Cinnamon] 1,000 mg PO DAILY 07/09/18 [History] Empagliflozin [Jardiance] 10 mg PO DAILY 07/09/18 [History] Ferrous Sulfate 325 mg PO DAILY 07/09/18 [History] Insulin Glarg,Human.Rec.Analog [Lantus Solostar] 20 unit SUBCUT DAILY 07/09/18 [ History] Lisinopril 5 mg PO DAILY 07/09/18 [History] Magnesium Oxide 400 mg PO DAILY 07/09/18 [History] Multivit with Calcium,Iron,Min [One Daily Women's] 1 tab PO DAILY 07/09/18 [ History] Nitroglycerin 0.4 mg SL ASDIRECTED 07/09/18 [History] Omeprazole 20 mg PO DAILY 07/09/18 [History] Ozempic 0.5 mg SQ RAMACHANDRAN 07/09/18 [History] Pyridoxine HCl [Vitamin B-6] 100 mg PO DAILY 07/09/18 [History] Vitamin B Complex [B Complex] 1 tab PO DAILY 07/09/18 [History] Vitamin E Mixed [Vitamin E] 400 unit PO DAILY 07/09/18 [History] Zinc Gluconate [Elemental Zinc] 60 mg PO DAILY 07/09/18 [History] atorvaSTATin [Lipitor] 10 mg PO DAILY 07/09/18 [History] glipiZIDE [Glucotrol] 5 mg PO DAILY 07/09/18 [History] metFORMIN HCl [Glucophage XR] 2,000 mg PO DAILY 07/09/18 [History] Albuterol Sulfate [Albuterol Sulfate Hfa] 8.5 gm IH Q4HR #1 hfa.aer.ad 07/29/18 [Rx] Levofloxacin [Levaquin] 500 mg PO DAILY #10 tablet 07/29/18 [Rx] Past Medical History HEENT History: Reports: Cataract Cardiovascular History: Reports: Hypertension, SC, Stents Respiratory History: Reports: None Gastrointestinal History: Reports: GERD, GI Bleed Genitourinary History: Reports: None Musculoskeletal History: Reports: Arthritis Neurological History: Reports: None Endocrine/Metabolic History: Reports: Diabetes, Type II Hematologic History: Reports: Blood Transfusion(s) Immunologic History: Reports: None Oncologic (Cancer) History: Reports: Other (See Below) Other Oncologic History: Melanoma - Infectious Disease History Infectious Disease History: Reports: Chicken Pox, Measles - Past Surgical History HEENT Surgical History: Reports: Cataract Surgery Cardiovascular Surgical History: Reports: Coronary Artery Stent Respiratory Surgical History: Reports: None GI Surgical History: Reports: Cholecystectomy, Colonoscopy, EGD, Other (See Below) Other GI Surgeries/Procedures: Gastric bypass Neurological Surgical History: Reports: None Musculoskeletal Surgical History: Reports: Other (See Below) Other Musculoskeletal Surgeries/Procedures:: Trigger finger surgery to right Dermatological Surgical History: Reports: None Social & Family History - Family History Family Medical History: Noncontributory - Caffeine Use Caffeine Use: Reports: Coffee, Soda, Tea ED ROS GENERAL - Review of Systems Review Of Systems: See Below Constitutional: Reports: Fever, Chills, Malaise, Weakness HEENT: Reports: No Symptoms Respiratory: Reports: Shortness of Breath, Cough, Sputum Cardiovascular: Reports: Dyspnea on Exertion Endocrine: Reports: No Symptoms GI/Abdominal: Reports: No Symptoms : Reports: No Symptoms Musculoskeletal: Reports: No Symptoms Skin: Reports: No Symptoms Neurological: Reports: No Symptoms Psychiatric: Reports: No Symptoms Hematologic/Lymphatic: Reports: No Symptoms Immunologic: Reports: No Symptoms ED EXAM, GENERAL - Physical Exam Exam: See Below Exam Limited By: No Limitations General Appearance: Alert, WD/WN, No Apparent Distress Ears: Normal External Exam, Normal Canal, Hearing Grossly Normal, Normal TMs Nose: Normal Inspection, Normal Mucosa, No Blood Throat/Mouth: Normal Inspection, Normal Lips, Normal Teeth, Normal Gums, Normal Oropharynx, Normal Voice, No Airway Compromise Head: Atraumatic, Normocephalic Neck: Normal Inspection, Supple, Non-Tender, Full Range of Motion Respiratory/Chest: No Respiratory Distress, No Accessory Muscle Use, Chest Non- Tender, Decreased Breath Sounds (right upper lobe). No: Accessory Muscle Use, Retractions, Splinting, Prolonged Expiration Cardiovascular: Normal Peripheral Pulses, Regular Rate, Rhythm, No Edema, No Gallop, No JVD, No Murmur, No Rub GI/Abdominal: Normal Bowel Sounds, Soft, Non-Tender, No Organomegaly, No Distention, No Abnormal Bruit, No Mass Back Exam: Normal Inspection, Full Range of Motion, NT Extremities: Normal Inspection, Normal Range of Motion, Non-Tender, Normal Capillary Refill, No Pedal Edema Neurological: Alert, Oriented, CN II-XII Intact, Normal Cognition, Normal Gait, Normal Reflexes, No Motor/Sensory Deficits Psychiatric: Normal Affect, Normal Mood Skin Exam: Warm, Dry, Intact, Normal Color, No Rash Lymphatic: No Adenopathy EKG INTERPRETATION EKG Date: 07/29/18 Time: 07:33 Rhythm: NSR Rate (Beats/Min): 88 [place]: Normal P-Wave: Present QRS: Normal ST-T: Normal QT: Normal Comparison: NA - No Prior EKG Course - Vital Signs Last Recorded V/S: Last Vital Signs Temp 37.7 C 07/29/18 08:14 Pulse 93 07/29/18 07:10 Resp 12 07/29/18 07:10 BP 165/68 H 07/29/18 07:51 Pulse Ox 97 07/29/18 07:51 - Orders/Labs/Meds Orders: Active Orders 24 hr Category Date Time Status EKG Documentation Completion [RC] ASDIRECTED Care 07/29/18 07:22 Active CULTURE BLOOD [BC] Stat Lab 07/29/18 07:22 Ordered CULTURE BLOOD [BC] Stat Lab 07/29/18 07:30 Received CULTURE SPUTUM + SMEAR [RM] Stat Lab 07/29/18 08:16 Ordered Blood Culture x2 Reflex Set [OM.PC] Stat Oth 07/29/18 07:20 Ordered EKG 12 Lead [EK] Routine Ther 07/29/18 07:20 Ordered Labs: Laboratory Tests 07/29/18 07/29/18 Range/Units 07:30 07:30 WBC 5.56 D (5.00-10.00) 10^3/uL RBC 4.81 (4.50-6.00) 10^6/uL Hgb 14.6 (13.0-17.0) g/dL Hct 43.0 (40.0-52.0) % MCV 89.4 (82.0-92.0) fL MCH 30.4 (27.0-31.0) pg MCHC 34.0 (32.0-36.0) g/dL RDW 12.2 (11.5-14.5) % Plt Count 159 (150-400) 10^3/uL MPV 10.4 (7.4-10.4) fL Immature Gran % (Auto) 0.2 (0.0-5.0) % Neut % (Auto) 87.3 H (50.0-70.0) % Lymph % (Auto) 6.7 L (20.0-40.0) % [place] % (Auto) 4.9 (2.0-8.0) % Eos % (Auto) 0.5 L (1.0-3.0) % Baso % (Auto) 0.4 (0.0-1.0) % Immature Gran # (Auto) 0.01 (0.00-0.50) 10^3/uL Neut # (Auto) 4.86 (2.50-7.00) 10^3/uL Lymph # (Auto) 0.37 L (1.00-4.00) 10^3/uL [place] # (Auto) 0.27 (0.10-0.80) 10^3/uL Eos # (Auto) 0.03 L (0.10-0.30) 10^3/uL Baso # (Auto) 0.02 (0.00-0.10) 10^3/uL Sodium 139 (136-145) mmol/L Potassium 4.5 (3.3-5.3) mmol/L Chloride 102 (98-115) mmol/L Carbon Dioxide 26.5 (21.0-32.0) mmol/L Anion Gap 15.0 (5-15) mmol/L BUN 23 (6-25) mg/dL Creatinine 1.09 (0.51-1.17) mg/dL Est Cr Clr Drug Dosing 74.16 mL/min Estimated GFR (MDRD) > 60 mL/min Glucose 154 H (75 - 99) mg/dL Calcium 9.3 (8.7-10.3) mg/dL Total Bilirubin 0.7 (0.2-1.0) mg/dL AST 26 (15-37) U/L ALT 27 (12-78) U/L Alkaline Phosphatase 81 (46-116) IU/L Creatine Kinase 88 (26-276) U/L CK-MB (CK-2) 1.60 (0.00-4.30) ng/mL Troponin I < 0.04 (0.00-0.070) ng/mL B-Natriuretic Peptide 28 (0-100) pg/mL Total Protein 7.0 (6.4-8.2) g/dL Albumin 3.72 (3.00-4.80) g/dL Meds: Medications Discontinued Medications Generic Name Dose Route Start Last Admin Trade Name Freq PRN Reason Stop Dose Admin Acetaminophen 1,000 mg 07/29/18 08:03 07/29/18 08:14 Tylenol Extra Strength PO 07/29/18 08:04 1,000 mg ONETIME ONE Administration - Radiology Interpretation Free Text/Narrative:: CXR- Right upper lobe infiltrate Departure - Departure Time of Disposition: 08:44 Disposition: Home, Self-Care 01 Condition: Good Clinical Impression: Pneumonia Qualifiers: Pneumonia type: due to unspecified organism Laterality: right Lung location: upper lobe of lung Qualified Code(s): J18.1 - Lobar pneumonia, unspecified organism - Discharge Information Prescriptions: Albuterol Sulfate [Albuterol Sulfate Hfa] 8.5 gm IH Q4HR #1 hfa.aer.ad Levofloxacin [Levaquin] 500 mg PO DAILY #10 tablet Instructions: Community-Acquired Pneumonia, Adult, Shortness of Breath, Adult, [id number] Referrals: Dustin Davis PA-C [Physician [employer]] - Forms: ED Department Discharge Additional Instructions: 1. Discussed case with Dustin fink pt had previous RAYO pneumonia 3 weeks ago but okay to discharge home with close follow up 2. levaquin 500mg PO QD x 10 days 3. tylenol 1g PO Q6 PRN fever/chills 4. albuterol HFA 2 puffs Q4 and PRN shortness of breath 5. follow up in [facility] next 24-48 hours 6. return to ER for worsening symptoms - My Orders Last 24 Hours: My Active Orders 07/29/18 07:20 Blood Culture x2 Reflex Set [OM.PC] Stat EKG 12 Lead [EK] Routine 07/29/18 07:22 EKG Documentation Completion [RC] ASDIRECTED CULTURE BLOOD [BC] Stat 07/29/18 07:30 CULTURE BLOOD [BC] Stat 07/29/18 08:16 CULTURE SPUTUM + SMEAR [RM] Stat - Assessment/Plan Last 24 Hours: My Active Orders 07/29/18 07:20 Blood Culture x2 Reflex Set [OM.PC] Stat EKG 12 Lead [EK] Routine 07/29/18 07:22 EKG Documentation Completion [RC] ASDIRECTED CULTURE BLOOD [BC] Stat 07/29/18 07:30 CULTURE BLOOD [BC] Stat 07/29/18 08:16 CULTURE SPUTUM + SMEAR [RM] Stat Assessment:: 1. RUL pneumonia Plan: 1. Discussed case with Dustin fink pt had previous RAYO pneumonia 3 weeks ago but okay to discharge home with close follow up 2. levaquin 500mg PO QD x 10 days 3. tylenol 1g PO Q6 PRN fever/chills 4. albuterol HFA 2 puffs Q4 and PRN shortness of breath 5. follow up in [facility] next 24-48 hours 6. return to ER for worsening symptoms
[2018-07-29] MEDS ORDERED: Acetaminophen 500 MG Tab PO ONE (08:03)
--- NOTE | 2018-07-29 08:11 | CR ---
[id number] RAD/RAD Chest PA And Lateral EXAM: RAD Chest PA And Lateral CLINICAL DATA: SHORTNESS OF BREATH COMPARISON: CORRELATION IS MADE WITH THE EXAM OF JULY 09, 2018. FINDINGS: A moderate right upper lobe infiltrate is seen. Follow-up until clearing would be suggested. The lungs otherwise are clear IMPRESSION: MODERATE RIGHT UPPER LOBE INFILTRATE. Jefry Zarate MD 07/29/18 0809 Thank you for allowing us to participate in the care of your patient.
[2018-07-29 08:35] LABS: CHLORIDE,CL 102 mmol/L (98-115); SODIUM,NA 139 mmol/L (136-145)
[2018-07-29] MEDS ORDERED: Levofloxacin/Dextrose 5%-Water 500 MG in Premix Bag 1 BAG IV ONE (08:40)
[2018-07-29] MEDS ORDERED: Levofloxacin 500 MG Tab PO ONE (08:40)
== END 2018-07-29 09:16 | disposition home or self-care (01) ==
LOC: KA.ED 07:08
DX: J18.1 Lobar pneumonia, unspecified organism (principal); I10 Essential (primary) hypertension; I25.2 Old myocardial infarction; K21.9 Gastro-esophageal reflux disease without esophagitis; E11.9 Type 2 diabetes mellitus without complications; Z95.5 Presence of coronary angioplasty implant and graft; Z90.49 Acquired absence of other specified parts of digestive tract; Z98.84 Bariatric surgery status; Z79.4 Long term (current) use of insulin; Z79.82 Long term (current) use of aspirin; Z79.899 Other long term (current) drug therapy; Z98.49 Cataract extraction status, unspecified eye
CPT/HCPCS: 36415; 71046; 80053; 82550; 82553; 83880; 84484; 85025; 87040; 87070; 87186; 87205; 93005; 99285-25; A9270-GY

== ENCOUNTER 2019-03-06 07:25 | Inpatient (IN) | payer OTHER ==
[2019-03-06] MEDS ORDERED: Sodium Chloride 0.9% 1,000 ML IV ONE (07:52)
[2019-03-06] MEDS ORDERED: Sodium Chloride 0.9% 10 ML Syringe FLUSH PRN ×2 (07:52→11:30)
[2019-03-06] MEDS ORDERED: Acetaminophen 500 MG Tab PO ONE (07:55)
[2019-03-06] MEDS ORDERED: Albuterol 0.083% 2.5 MG/3 ML Neb Soln NEB ONE (08:03)
--- NOTE | 2019-03-06 08:03 | EDM.PDOC ---
ED HPI GENERAL MEDICAL PROBLEM - General Chief Complaint: Respiratory Problem Stated Complaint: chest pain Time Seen by Provider: 03/06/19 07:35 Source of Information: Reports: Patient History Limitations: Reports: No Limitations - History of Present Illness INITIAL COMMENTS - FREE TEXT/NARRATIVE: 63 YO WM presents to ER complaining of left sided chest pain and shortness of breath which began around 1 am today. Pt reports he felt fine yesterday and worked all day. Pt came home and had supper and went to bed only to wake in the middle of the night with chills, mild shortness of breath and left sided chest pain. Pt reports once he was started on oxygen he felt better. Pt with history of pneumonia. Pt with history of CAD with stents. Pt with temp of 102 in ER. Pt denies cough, hemoptysis, nausea/vomiting or lightheadedness. Onset: Today Duration: Hour(s): (6) Location: Reports: Chest Quality: Reports: Ache Severity: Mild Improves with: Reports: Other (oxygen) Worsens with: Reports: None Associated Symptoms: Reports: Chest Pain, Fever/Chills, Shortness of Breath. Denies: Cough, cough w sputum, Loss of Appetite, Malaise, Nausea/Vomiting, Rash Left Neck Pain Score (Numeric/FACES): 0 - Related Data Allergies Allergy/AdvReac Type Severity Reaction Status Date / Time No Known Drug Allergies Allergy Other Verified 03/06/19 08:01 Home Meds: Home Meds Aspirin [Halfprin] 81 mg PO DAILY 07/09/18 [History] Calcium Carb, Citrate/Vit D3 [Citracal + D ER] 1 tab PO DAILY 07/09/18 [History] Cholecalciferol (Vitamin D3) [Vitamin D3] 2,000 unit PO DAILY 07/09/18 [History] Cinnamon Bark [Cinnamon] 1,000 mg PO DAILY 07/09/18 [History] Empagliflozin [Jardiance] 10 mg PO DAILY 07/09/18 [History] Ferrous Sulfate 325 mg PO DAILY 07/09/18 [History] Insulin Glarg,Human.Rec.Analog [Lantus Solostar] 18 unit SUBCUT QAM 07/09/18 [ History] Lisinopril 5 mg PO DAILY 07/09/18 [History] Magnesium Oxide 400 mg PO DAILY 07/09/18 [History] Multivit with Calcium,Iron,Min [One Daily Women's] 1 tab PO DAILY 07/09/18 [ History] Nitroglycerin 0.4 mg SL ASDIRECTED 07/09/18 [History] Omeprazole 20 mg PO DAILY 07/09/18 [History] Ozempic 0.5 mg SQ RAMACHANDRAN 07/09/18 [History] Pyridoxine HCl (Vitamin B6) [Vitamin B-6] 100 mg PO DAILY 07/09/18 [History] Vitamin B Complex [B Complex] 1 tab PO DAILY 07/09/18 [History] Vitamin E Mixed [Vitamin E] 400 unit PO DAILY 07/09/18 [History] Zinc Gluconate [Elemental Zinc] 60 mg PO DAILY 07/09/18 [History] atorvaSTATin [Lipitor] 20 mg PO DAILY 07/09/18 [History] glipiZIDE [Glucotrol] 5 mg PO DAILY 07/09/18 [History] metFORMIN HCl [Glucophage XR] 2,000 mg PO DAILY 07/09/18 [History] Albuterol Sulfate [Albuterol Sulfate Hfa] 8.5 gm IH Q4HR #1 [id number].aer.[id number] 07/29/18 [Rx] Zinc Gluconate [Zinc] 60 mg PO BID 03/06/19 [History] Past Medical History HEENT History: Reports: Cataract Cardiovascular History: Reports: Hypertension, [place], Stents Respiratory History: Reports: None Gastrointestinal History: Reports: GERD, GI Bleed Genitourinary History: Reports: None Musculoskeletal History: Reports: Arthritis Neurological History: Reports: None Endocrine/Metabolic History: Reports: Diabetes, Type II Hematologic History: Reports: Blood Transfusion(s) Immunologic History: Reports: None Oncologic (Cancer) History: Reports: Other (See Below) Other Oncologic History: Melanoma - Infectious Disease History Infectious Disease History: Reports: Chicken Pox, Measles - Past Surgical History HEENT Surgical History: Reports: Cataract Surgery Cardiovascular Surgical History: Reports: Coronary Artery Stent Respiratory Surgical History: Reports: None GI Surgical History: Reports: Cholecystectomy, Colonoscopy, EGD, Other (See Below) Other GI Surgeries/Procedures: Gastric bypass Neurological Surgical History: Reports: None Musculoskeletal Surgical History: Reports: Other (See Below) Other Musculoskeletal Surgeries/Procedures:: Trigger finger surgery to right Dermatological Surgical History: Reports: None Social & Family History - Family History Family Medical History: Noncontributory - Caffeine Use Caffeine Use: Reports: Coffee, Soda, Tea ED ROS GENERAL - Review of Systems Review Of Systems: See Below Constitutional: Reports: Fever, Chills HEENT: Reports: No Symptoms Respiratory: Reports: Shortness of Breath Cardiovascular: Reports: Chest Pain Endocrine: Reports: No Symptoms GI/Abdominal: Reports: No Symptoms : Reports: No Symptoms Musculoskeletal: Reports: No Symptoms Skin: Reports: No Symptoms Neurological: Reports: No Symptoms Psychiatric: Reports: No Symptoms Hematologic/Lymphatic: Reports: No Symptoms Immunologic: Reports: No Symptoms ED EXAM, GENERAL - Physical Exam Exam: See Below Exam Limited By: No Limitations General Appearance: Alert, WD/WN, No Apparent Distress Ear Exam: Bilateral Ear: Auricle Normal, Canal Normal, TM normal Nose: Normal Inspection, Normal Mucosa, No Blood Throat/Mouth: Normal Inspection, Normal Lips, Normal Teeth, Normal Gums, Normal Oropharynx, Normal Voice, No Airway Compromise Head: Atraumatic, Normocephalic Neck: Normal Inspection, Supple, Non-Tender, Full Range of Motion Respiratory/Chest: No Respiratory Distress, Lungs Clear, Normal Breath Sounds, No Accessory Muscle Use, Chest Non-Tender Cardiovascular: Normal Peripheral Pulses, Regular Rate, Rhythm, No Edema, No Gallop, No JVD, No Murmur, No Rub GI/Abdominal: Normal Bowel Sounds, Soft, Non-Tender, No Organomegaly, No Distention, No Abnormal Bruit, No Mass Back Exam: Normal Inspection, Full Range of Motion, NT Extremities: Normal Inspection, Normal Range of Motion, Non-Tender, Normal Capillary Refill, No Pedal Edema Neurological: Alert, Oriented, CN II-XII Intact, Normal Cognition, Normal Gait, Normal Reflexes, No Motor/Sensory Deficits Psychiatric: Normal Affect, Normal Mood Skin Exam: Warm, Dry, Intact, Normal Color, No Rash Lymphatic: No Adenopathy EKG INTERPRETATION EKG Date: 03/06/19 Time: 07:33 Rhythm: NSR Rate (Beats/Min): 98 [place]: Normal P-Wave: Present QRS: Normal ST-T: Normal QT: Normal Course - Vital Signs Last Recorded V/S: Last Vital Signs Temp 38.2 C H 03/06/19 08:50 Pulse 101 H 03/06/19 08:50 Resp 18 03/06/19 08:50 BP 128/51 L 03/06/19 08:50 Pulse Ox 95 01/30/20 08:50 - Orders/Labs/Meds Orders: Active Orders 24 hr Category Date Time Status Cardiac Monitoring [RC] CONTINUOUS Care 03/06/19 07:53 Active EKG Documentation Completion [RC] ASDIRECTED Care 03/06/19 07:48 Active Oxygen Therapy, ED [RC] STAT Care 03/06/19 07:53 Active RT Aerosol Therapy [RC] ASDIRECTED Care 03/06/19 08:03 Active CULTURE BLOOD [BC] Stat Lab 03/06/19 07:52 Ordered CULTURE BLOOD [BC] Stat Lab 03/06/19 07:52 Ordered UA W/MICROSCOPIC [URIN] Stat Lab 03/06/19 07:52 Ordered Sodium Chloride 0.9% [Normal Saline] 1,000 ml Med 03/06/19 07:52 Active IV BOLUS Sodium Chloride 0.9% [Saline Flush] Med 03/06/19 07:52 Active 10 ml FLUSH Q8HR PRN Blood Culture x2 Reflex Set [OM.PC] Stat Oth 03/06/19 07:52 Ordered Saline Lock Insert [OM.PC] Stat Oth 03/06/19 07:52 Ordered Severe Sepsis Onset Time [OM.PC] Stat Oth 03/06/19 07:52 Ordered EKG 12 Lead [EK] Routine Ther 03/06/19 07:48 Ordered Medication Orders Sodium Chloride (Normal Saline) 1,000 mls @ 500 mls/hr IV BOLUS ONE Stop: 03/06/19 09:51 Last Admin: 03/06/19 08:13 Dose: 500 mls/hr Sodium Chloride (Saline Flush) 10 ml FLUSH Q8HR PRN PRN Reason: keep vein open Labs: Laboratory Tests 03/06/19 03/06/19 03/06/19 Range/Units 07:45 07:45 07:45 WBC 5.41 (5.00-10.00) 10^3/uL RBC 4.67 (4.50-6.00) 10^6/uL Hgb 13.7 (13.0-17.0) g/dL Hct 41.1 (40.0-52.0) % MCV 88.0 (82.0-92.0) fL MCH 29.3 (27.0-31.0) pg MCHC 33.3 (32.0-36.0) g/dL RDW 12.1 (11.5-14.5) % Plt Count 125 L (150-400) 10^3/uL MPV 10.4 (7.4-10.4) fL Add Manual Diff Yes Neutrophils % (Manual) 86 H (50-70) % Lymphocytes % (Manual) 9 L (20-40) % Monocytes % (Manual) 4 (2-8) % Eosinophils % (Manual) 1 (1-3) % Absolute Neutrophils 4.6526 Lymphocytes # (Manual) 0.4869 Monocytes # (Manual) 0.2164 Eosinophils # (Manual) 0.0541 Sodium 140 (136-145) mmol/L Potassium 4.3 (3.3-5.3) mmol/L Chloride 102 (98-115) mmol/L Carbon Dioxide 28.3 (21.0-32.0) mmol/L Anion Gap 14.0 (5-15) mmol/L BUN 19 (6-25) mg/dL Creatinine 1.23 H (0.51-1.17) mg/dL Est Cr Clr Drug Dosing 66.46 mL/min Estimated GFR (MDRD) 59 mL/min Glucose 178 H (75 - 99) mg/dL Lactic Acid 1.3 (0.4-2.0) mmol/L Calcium 8.8 (8.7-10.3) mg/dL Total Bilirubin 0.7 (0.2-1.0) mg/dL AST 19 (15-37) U/L ALT 25 (12-78) U/L Alkaline Phosphatase 68 (46-116) IU/L Troponin I 0.05 (0.00-0.070) ng/mL C-Reactive Protein < 0.2 (0.0-0.9) mg/dL Total Protein 6.4 (6.4-8.2) g/dL Albumin 3.48 (3.00-4.80) g/dL Urine Color (YELLOW) Urine Appearance (CLEAR) Urine pH (5.0-9.0) Ur Specific [place] (1.005-1.030) Urine Protein (NEGATIVE) mg/dL Urine Glucose (UA) (NEGATIVE) mg/dL Urine Ketones (NEGATIVE) mg/dL Urine Occult Blood (NEGATIVE) Urine Nitrite (NEGATIVE) Urine Bilirubin (NEGATIVE) Urine Urobilinogen (0.2-1.0) E.U./dL Ur Leukocyte Esterase (NEGATIVE) 03/06/19 Range/Units 07:52 WBC (5.00-10.00) 10^3/uL RBC (4.50-6.00) 10^6/uL Hgb (13.0-17.0) g/dL Hct (40.0-52.0) % MCV (82.0-92.0) fL MCH (27.0-31.0) pg MCHC (32.0-36.0) g/dL RDW (11.5-14.5) % Plt Count (150-400) 10^3/uL MPV (7.4-10.4) fL Add Manual Diff Neutrophils % (Manual) (50-70) % Lymphocytes % (Manual) (20-40) % Monocytes % (Manual) (2-8) % Eosinophils % (Manual) (1-3) % Absolute Neutrophils Lymphocytes # (Manual) Monocytes # (Manual) Eosinophils # (Manual) Sodium (136-145) mmol/L Potassium (3.3-5.3) mmol/L Chloride (98-115) mmol/L Carbon Dioxide (21.0-32.0) mmol/L Anion Gap (5-15) mmol/L BUN (6-25) mg/dL Creatinine (0.51-1.17) mg/dL Est Cr Clr Drug Dosing mL/min Estimated GFR (MDRD) mL/min Glucose (75 - 99) mg/dL Lactic Acid (0.4-2.0) mmol/L Calcium (8.7-10.3) mg/dL Total Bilirubin (0.2-1.0) mg/dL AST (15-37) U/L ALT (12-78) U/L Alkaline Phosphatase (46-116) IU/L Troponin I (0.00-0.070) ng/mL C-Reactive Protein (0.0-0.9) mg/dL Total Protein (6.4-8.2) g/dL Albumin (3.00-4.80) g/dL Urine Color Yellow (YELLOW) Urine Appearance Clear (CLEAR) Urine pH 5.0 (5.0-9.0) Ur Specific [place] 1.020 (1.005-1.030) Urine Protein Negative (NEGATIVE) mg/dL Urine Glucose (UA) 500 H (NEGATIVE) mg/dL Urine Ketones 15 H (NEGATIVE) mg/dL Urine Occult Blood Negative (NEGATIVE) Urine Nitrite Negative (NEGATIVE) Urine Bilirubin Negative (NEGATIVE) Urine Urobilinogen 0.2 (0.2-1.0) E.U./dL Ur Leukocyte Esterase Negative (NEGATIVE) Meds: Medications Generic Name Dose Route Start Last Admin Trade Name Freq PRN Reason Stop Dose Admin Sodium Chloride 1,000 mls @ 500 mls/hr 03/06/19 07:52 03/06/19 08:13 Normal Saline IV 03/06/19 09:51 500 mls/hr BOLUS ONE Administration Sodium Chloride 10 ml 03/06/19 07:52 Saline Flush FLUSH Q8HR PRN keep vein open Discontinued Medications Generic Name Dose Route Start Last Admin Trade Name Freq PRN Reason Stop Dose Admin Acetaminophen 1,000 mg 03/06/19 07:55 03/06/19 08:13 Tylenol Extra Strength PO 03/06/19 07:56 1,000 mg ONETIME ONE Administration Albuterol 2.5 mg 03/06/19 08:03 03/06/19 08:16 Proventil Neb Soln NEB 03/06/19 08:04 2.5 mg ONETIME ONE Administration Ceftriaxone Sodium 1 gm 03/06/19 08:38 Rocephin IVPUSH 03/06/19 08:39 ONETIME ONE - Radiology Interpretation Free Text/Narrative:: CXR- Patchy infiltrates throughout left lung consistent with pneumonia - Re-Assessments/Exams Free Text/Narrative Re-Assessment/Exam: 03/06/19 08:39 discussed case with Dandre Palafox who will admit for CAP pneumonia. Departure - Departure Time of Disposition: 08:42 Disposition: Refer to Observation Condition: Fair Clinical Impression: Pneumonia Qualifiers: Pneumonia type: due to unspecified organism Laterality: left Lung location: lower lobe of lung Qualified Code(s): J18.9 - Pneumonia, unspecified organism - Discharge Information Referrals: PCP,None [Primary Care Provider] - Forms: ED Department Discharge Sepsis Event Note - Focused Exam Vital Signs: Vital Signs Temp Temp Pulse Resp BP Pulse Ox Pulse Ox 03/06/19 08:50 38.2 C H 101 H 18 128/51 L 95 03/06/19 08:33 38.3 C H 108 H 18 127/55 L 93 L 01/30/20 08:17 97 18 126/60 99 03/06/19 08:13 39.1 C H 03/06/19 07:55 39.1 C H 100 18 154/78 H 93 L 03/06/19 07:53 99 Date Exam was Performed: 03/06/19 Time Exam was Performed: 08:54 - My Orders Last 24 Hours: My Active Orders 03/06/19 07:48 EKG Documentation Completion [RC] ASDIRECTED EKG 12 Lead [EK] Routine 03/06/19 07:52 CULTURE BLOOD [BC] Stat CULTURE BLOOD [BC] Stat UA W/MICROSCOPIC [URIN] Stat Sodium Chloride 0.9% [Normal Saline] 1,000 ml IV BOLUS Sodium Chloride 0.9% [Saline Flush] 10 ml FLUSH Q8HR PRN Blood Culture x2 Reflex Set [OM.PC] Stat Saline Lock Insert [OM.PC] Stat Severe Sepsis Onset Time [OM.PC] Stat 03/06/19 07:53 Cardiac Monitoring [RC] CONTINUOUS Oxygen Therapy, ED [RC] STAT 03/06/19 08:03 RT Aerosol Therapy [RC] ASDIRECTED - Assessment/Plan Last 24 Hours: My Active Orders 03/06/19 07:48 EKG Documentation Completion [RC] ASDIRECTED EKG 12 Lead [EK] Routine 03/06/19 07:52 CULTURE BLOOD [BC] Stat CULTURE BLOOD [BC] Stat UA W/MICROSCOPIC [URIN] Stat Sodium Chloride 0.9% [Normal Saline] 1,000 ml IV BOLUS Sodium Chloride 0.9% [Saline Flush] 10 ml FLUSH Q8HR PRN Blood Culture x2 Reflex Set [OM.PC] Stat Saline Lock Insert [OM.PC] Stat Severe Sepsis Onset Time [OM.PC] Stat 03/06/19 07:53 Cardiac Monitoring [RC] CONTINUOUS Oxygen Therapy, ED [RC] STAT 03/06/19 08:03 RT Aerosol Therapy [RC] ASDIRECTED Assessment:: 1. Left sided pneumonia 2. chest pain Plan: 1. Admit to medicine- Dandre CLEMENT 2. Rocephin/zithromax 3. oxygen 4. supportive care 5. duoneb tx Q4 and PRN
--- NOTE | 2019-03-06 08:13 | CR ---
[id number] RAD/RAD Chest PA And Lateral EXAM: FRONTAL AND LATERAL CHEST INDICATION: Fever and chest pain. COMPARISON: July 29, 2018. DISCUSSION: Mild to moderate patchy infiltrates throughout the left lung. Mild elevation of the right hemidiaphragm has slightly increased. Interval resolution of right-sided infiltrates. IMPRESSION: 1. New mild to moderate infiltrates throughout the left lung. Bj Leung MD 03/06/19 0812 Thank you for allowing us to participate in the care of your patient.
[2019-03-06 08:37] LABS: CHLORIDE,CL 102 mmol/L (98-115); SODIUM,NA 140 mmol/L (136-145)
[2019-03-06] MEDS ORDERED: cefTRIAXone 1 GM Vial IVPUSH ONE (08:38)
[2019-03-06] MEDS ORDERED: Ondansetron 4 MG Tab.DIS PO PRN (11:30)
[2019-03-06] MEDS ORDERED: Non-Formulary Medication 1 Each (Empagliflozin [Jardiance] 10 MG) PO SCH (14:45)
[2019-03-06] MEDS ORDERED: Nitroglycerin 0.4 MG Tab.SL SL SCH (14:45)
[2019-03-06] MEDS: glipiZIDE 5 MG Tab PO SCH (16:53)
[2019-03-06] MEDS: atorvaSTATin 10 MG Tab PO SCH (16:54)
[2019-03-06] MEDS: Aspirin 81 MG Tab.EC PO SCH (16:54)
[2019-03-07] MEDS: Aspirin 81 MG Tab.EC PO SCH (08:39)
[2019-03-07] MEDS: atorvaSTATin 10 MG Tab PO SCH (08:39)
[2019-03-07] MEDS: glipiZIDE 5 MG Tab PO SCH (08:40)
[2019-03-07] MEDS ORDERED: Lisinopril 5 MG Tab PO SCH (09:00)
[2019-03-07] MEDS ORDERED: Omeprazole 20 MG Cap.CR PO SCH (09:00)
[2019-03-07] MEDS ORDERED: Insulin Glargine,Human Rec. Analog 100 Units/ML 3 ML Pen SUBCUT SCH (09:00)
[2019-03-07] MEDS ORDERED: cefTRIAXone 1 GM Vial IVPUSH ONE (10:06)
--- NOTE | 2019-03-07 10:28 | PCM.DCSUM1 ---
Discharge Summary - Hospital Course Diagnosis: Stroke: No - Discharge Data Discharge Date: 03/07/19 Discharge Disposition: Home, Self-Care 01 Condition: Good - Referral to Home Health Primary Care Physician: PCP Not In Area - Patient Instructions Diet: Usual Diet as Tolerated, Drink 8-10+ Glasses/Day Activity: As Tolerated, Cough & Deep Breathe (use your Incentive spirometer that we talked about every 2 hours) Driving: May Drive Today Showering/Bathing: May Shower Notify Provider of: Fever, Nausea and/or Vomiting - Discharge Plan *PRESCRIPTION DRUG MONITORING PROGRAM REVIEWED*: Not Applicable *COPY OF PRESCRIPTION DRUG MONITORING REPORT IN PATIENT SHANTE: Not Applicable Prescriptions/Med Rec: Levofloxacin [Levaquin] 750 mg PO DAILY #10 tablet Home Medications: Home Meds Aspirin [Halfprin] 81 mg PO DAILY 07/09/18 [History] Calcium Carb, Citrate/Vit D3 [Citracal + D ER] 1 tab PO DAILY 07/09/18 [History] Cholecalciferol (Vitamin D3) [Vitamin D3] 2,000 unit PO DAILY 07/09/18 [History] Cinnamon Bark [Cinnamon] 1,000 mg PO DAILY 07/09/18 [History] Empagliflozin [Jardiance] 10 mg PO DAILY 07/09/18 [History] Ferrous Sulfate 325 mg PO DAILY 07/09/18 [History] Insulin Glarg,Human.Rec.Analog [Lantus Solostar] 18 unit SUBCUT QAM 07/09/18 [ History] Lisinopril 5 mg PO DAILY 07/09/18 [History] Magnesium Oxide 400 mg PO DAILY 07/09/18 [History] Multivit with Calcium,Iron,Min [One Daily Women's] 1 tab PO DAILY 07/09/18 [ History] Nitroglycerin 0.4 mg SL ASDIRECTED 07/09/18 [History] Omeprazole 20 mg PO DAILY 07/09/18 [History] Ozempic 0.5 mg SQ RAMACHANDRAN 07/09/18 [History] Pyridoxine HCl (Vitamin B6) [Vitamin B-6] 100 mg PO DAILY 07/09/18 [History] Vitamin B Complex [B Complex] 1 tab PO DAILY 07/09/18 [History] Vitamin E Mixed [Vitamin E] 400 unit PO DAILY 07/09/18 [History] Zinc Gluconate [Elemental Zinc] 60 mg PO DAILY 07/09/18 [History] atorvaSTATin [Lipitor] 20 mg PO DAILY 07/09/18 [History] glipiZIDE [Glucotrol] 5 mg PO DAILY 07/09/18 [History] metFORMIN HCl [Glucophage XR] 2,000 mg PO DAILY 07/09/18 [History] Zinc Gluconate [Zinc] 60 mg PO BID 03/06/19 [History] Levofloxacin [Levaquin] 750 mg PO DAILY #10 tablet 03/07/19 [Rx] Forms: ED Department Discharge Referrals: Dandre Palafox, DIRECTOR CORPORATE COMMUNICATIONS [Nurse Practitioner] - (Me in [place] (unless I am in either [place] or [place] next week but I doubt it) Patient desires to follow-up with myself and he will travel to [place] if needed. Next week anytime) - Discharge Summary/Plan Comment DC Time >30 min.: Yes Discharge Summary/Plan Comment: Final diagnosis Pneumonia, left, community-acquired, History summary Mr Alcaraz is a 63-year-old pleasant gentleman who was in normal state of health however was admitted through the ED when he came in initially due to left sided chest pain and shortness of breath which began around 1 am the day of admission. Pt reported he had came home from work after feeling fine had supper and went to bed only to wake in the middle of the night with chills, mild shortness of breath and left sided chest pain. Pt reported once he was started on oxygen he felt better. Pt with history of pneumonia with bacteremia back in July 2018 here at [facility] ([facility] Pt with history of CAD with stents. ED course temp of 102 in ER. Pt denies cough, hemoptysis, nausea/vomiting or lightheadedness.. X-ray, mild to moderate left infiltrates throughout Lactic acid 1.3, creatinine 1.23 Negative troponin Hospital course Patient felt 100% improved early on admission however he was kept for ongoing antibiotics and more monitoring. Troponin level was normal, negative inflammatory markers, he quickly improved and was off oxygen with no cough no sputum production. Vital signs were all stable. No signs of systemic infection , ceftriaxone. Cultures were pending upon discharge however all inflammatory markers non-concerning. Negative influenza A/B Medication changes/adjustments upon discharge Levaquin 750 mg p.o. daily x10 days continue on all other home meds Disposition Patient will be discharged from [facility] ([facility] Follow-up next week [place] [facility] with myself Discharge instructions and red flags were discussed with patient He is up-to-date on pneumo coccal donations - General Info Functional Status: Reports: Pain Controlled, Tolerating Diet, Ambulating, Urinating. Denies: New Symptoms - Review of Systems General: Reports: Appetite. Denies: Fever, Weakness, Fatigue, Malaise, Chills HEENT: Denies: Dysphasia Pulmonary: Denies: Shortness of Breath, Cough, Sputum, Hemoptysis, Wheezing Cardiovascular: Denies: Chest Pain, Palpitations, Dyspnea on Exertion Genitourinary: Reports: No Symptoms Musculoskeletal: Reports: No Symptoms Skin: Reports: No Symptoms Neurological: Reports: No Symptoms - Patient Data Vitals - Most Recent: Last Vital Signs Temp 98.1 F 03/07/19 06:43 Pulse 56 L 03/07/19 06:43 Resp 18 03/07/19 06:43 BP 132/70 03/07/19 08:39 Pulse Ox 96 03/07/19 06:43 Weight - Most Recent: 178 lb 8 oz I&O - Last 24 hours: Intake & Output 03/06/19 03/07/19 03/07/19 22:59 06:59 14:59 Intake Total 600 0 Balance 600 0 Lab Results - Last 24 hrs: Laboratory Results - last 24 hr 03/06/19 03/07/19 03/07/19 Range/Units 22:00 06:32 07:17 WBC 10.47 H (5.00-10.00) 10^3/uL RBC 4.24 L (4.50-6.00) 10^6/uL Hgb 12.8 L (13.0-17.0) g/dL Hct 37.9 L (40.0-52.0) % MCV 89.4 (82.0-92.0) fL MCH 30.2 (27.0-31.0) pg MCHC 33.8 (32.0-36.0) g/dL RDW 12.4 (11.5-14.5) % Plt Count 128 L (150-400) 10^3/uL MPV 11.0 H (7.4-10.4) fL Immature Gran % (Auto) 0.2 (0.0-5.0) % Neut % (Auto) 85.7 H (50.0-70.0) % Lymph % (Auto) 8.4 L (20.0-40.0) % [place]ron % (Auto) 4.5 (2.0-8.0) % Eos % (Auto) 1.0 (1.0-3.0) % Baso % (Auto) 0.2 (0.0-1.0) % Immature Gran # (Auto) 0.02 (0.00-0.50) 10^3/uL Neut # (Auto) 8.98 H (2.50-7.00) 10^3/uL Lymph # (Auto) 0.88 L (1.00-4.00) 10^3/uL [place] # (Auto) 0.47 (0.10-0.80) 10^3/uL Eos # (Auto) 0.10 (0.10-0.30) 10^3/uL Baso # (Auto) 0.02 (0.00-0.10) 10^3/uL POC Glucose 125 H 136 H (74-106) mg/dl NOEMI Results - Last 24 hrs: Microbiology 03/06/19 08:10 Influenza Type A Antigen Screen - Final Nasal, Unspecified NEGATIVE INFLUENZA A VIRUS AG REFERENCE RANGE: NEGATIVE Influenza Type B Antigen Screen - Final NEGATIVE INFLUENZA B VIRUS AG REFERENCE RANGE: NEGATIVE Med Orders - Current: Current Medications Aspirin (Halfprin) 81 mg PO DAILY [facility] Last Admin: 03/07/19 08:39 Dose: 81 mg Atorvastatin Calcium (Lipitor) 20 mg PO DAILY [facility] Last Admin: 03/07/19 08:39 Dose: 20 mg Ceftriaxone Sodium (Rocephin) 1 gm IVPUSH ONETIME ONE Stop: 03/07/19 10:07 Glipizide (Glucotrol) 5 mg PO DAILY [facility] Last Admin: 03/07/19 08:40 Dose: 5 mg Insulin Glargine (Lantus Solostar) 18 units SUBCUT QAM [facility] Last Admin: 03/07/19 08:21 Dose: 18 units Lisinopril (Prinivil) 5 mg PO DAILY [facility] Last Admin: 03/07/19 08:39 Dose: 5 mg Nitroglycerin (Nitrostat) 0.4 mg SL ASDIRECTED [facility] Non-Formulary Medication (Empagliflozin [Jardiance]) 10 mg PO DAILY [facility] Omeprazole (Omeprazole) 20 mg PO DAILY [facility] Last Admin: 03/07/19 08:39 Dose: 20 mg Ondansetron HCl (Zofran Odt) 4 mg PO Q4H PRN PRN Reason: nausea, able to take PO Sodium Chloride (Saline Flush) 10 ml FLUSH Q8HR PRN PRN Reason: keep vein open Discontinued Medications Acetaminophen (Tylenol Extra Strength) 1,000 mg PO ONETIME ONE Stop: 03/06/19 07:56 Last Admin: 03/06/19 08:13 Dose: 1,000 mg Albuterol (Proventil Neb Soln) 2.5 mg NEB ONETIME ONE Stop: 03/06/19 08:04 Last Admin: 03/06/19 08:16 Dose: 2.5 mg Ceftriaxone Sodium (Rocephin) 1 gm IVPUSH ONETIME ONE Stop: 03/06/19 08:39 Last Admin: 03/06/19 10:00 Dose: 1 gm Sodium Chloride (Normal Saline) 1,000 mls @ 500 mls/hr IV BOLUS ONE Stop: 03/06/19 09:51 Last Admin: 03/06/19 08:13 Dose: 500 mls/hr Sodium Chloride (Saline Flush) 10 ml FLUSH Q8HR PRN PRN Reason: keep vein open - Exam Quality Assessment: Denies: Supplemental Oxygen General: Reports: Alert, Oriented Lungs: Reports: Clear to Auscultation, Normal Respiratory Effort Cardiovascular: Reports: Regular Rate, Regular Rhythm
--- NOTE | 2019-03-07 10:34 | PCM.HP.2 ---
H&P History of Present Illness - General Date of Service: 03/06/19 Admit Problem/Dx: Admission Diagnosis/Problem Admission Diagnosis/Problem Pneumonia Source of Information: Patient, Provider History Limitations: Reports: No Limitations Left Neck Pain Score (Numeric/FACES): 0 - Related Data Allergies/Adverse Reactions: Allergies Allergy/AdvReac Type Severity Reaction Status Date / Time No Known Drug Allergies Allergy Other Verified 03/06/19 08:01 Home Medications: Home Meds Aspirin [Halfprin] 81 mg PO DAILY 07/09/18 [History] Calcium Carb, Citrate/Vit D3 [Citracal + D ER] 1 tab PO DAILY 07/09/18 [History] Cholecalciferol (Vitamin D3) [Vitamin D3] 2,000 unit PO DAILY 07/09/18 [History] Cinnamon Bark [Cinnamon] 1,000 mg PO DAILY 07/09/18 [History] Empagliflozin [Jardiance] 10 mg PO DAILY 07/09/18 [History] Ferrous Sulfate 325 mg PO DAILY 07/09/18 [History] Insulin Glarg,Human.Rec.Analog [Lantus Solostar] 18 unit SUBCUT QAM 07/09/18 [ History] Lisinopril 5 mg PO DAILY 07/09/18 [History] Magnesium Oxide 400 mg PO DAILY 07/09/18 [History] Multivit with Calcium,Iron,Min [One Daily Women's] 1 tab PO DAILY 07/09/18 [ History] Nitroglycerin 0.4 mg SL ASDIRECTED 07/09/18 [History] Omeprazole 20 mg PO DAILY 07/09/18 [History] Ozempic 0.5 mg SQ RAMACHANDRAN 07/09/18 [History] Pyridoxine HCl (Vitamin B6) [Vitamin B-6] 100 mg PO DAILY 07/09/18 [History] Vitamin B Complex [B Complex] 1 tab PO DAILY 07/09/18 [History] Vitamin E Mixed [Vitamin E] 400 unit PO DAILY 07/09/18 [History] Zinc Gluconate [Elemental Zinc] 60 mg PO DAILY 07/09/18 [History] atorvaSTATin [Lipitor] 20 mg PO DAILY 07/09/18 [History] glipiZIDE [Glucotrol] 5 mg PO DAILY 07/09/18 [History] metFORMIN HCl [Glucophage XR] 2,000 mg PO DAILY 07/09/18 [History] Zinc Gluconate [Zinc] 60 mg PO BID 03/06/19 [History] Levofloxacin [Levaquin] 750 mg PO DAILY #10 tablet 03/07/19 [Rx] Past Medical History HEENT History: Reports: Cataract Cardiovascular History: Reports: Hypertension, [place], Stents Respiratory History: Reports: None Gastrointestinal History: Reports: GERD, GI Bleed Genitourinary History: Reports: None Musculoskeletal History: Reports: Arthritis Neurological History: Reports: None Endocrine/Metabolic History: Reports: Diabetes, Type II Hematologic History: Reports: Blood Transfusion(s) Immunologic History: Reports: None Oncologic (Cancer) History: Reports: Other (See Below) Other Oncologic History: Melanoma Dermatologic History: Reports: Other (See Below) Other Dermatologic History: 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 - Infectious Disease History Infectious Disease History: Reports: Chicken Pox, Measles - Past Surgical History HEENT Surgical History: Reports: Cataract Surgery Cardiovascular Surgical History: Reports: Coronary Artery Stent Respiratory Surgical History: Reports: None GI Surgical History: Reports: Cholecystectomy, Colonoscopy, EGD, Other (See Below) Other GI Surgeries/Procedures: Gastric bypass Neurological Surgical History: Reports: None Musculoskeletal Surgical History: Reports: Other (See Below) Other Musculoskeletal Surgeries/Procedures:: Trigger finger surgery to right Dermatological Surgical History: Reports: None Social & Family History - Family History Family Medical History: Noncontributory - Tobacco Use Smoking Status *Q: Never Smoker - Caffeine Use Caffeine Use: Reports: Coffee, Soda, Tea Other Caffeine Use: diet coke - Alcohol Use Days Per Week of Alcohol Use: 1 Number of Drinks Per Day: 2 Total Drinks Per Week: 2 - Recreational Drug Use Recreational Drug Use: No H&P Review of Systems - Review of Systems: Review Of Systems: See Below General: Denies: Fever, Chills, Malaise, Weakness HEENT: Reports: No Symptoms Pulmonary: Reports: Cough Cardiovascular: Denies: Chest Pain Gastrointestinal: Reports: No Symptoms Genitourinary: Reports: No Symptoms Musculoskeletal: Reports: No Symptoms Skin: Reports: No Symptoms Psychiatric: Reports: No Symptoms Neurological: Reports: No Symptoms Hematologic/Lymphatic: Reports: No Symptoms Immunologic: Reports: No Symptoms Exam - Exam Exam: See Below - Vital Signs Vital Signs: Last Vital Signs Temp 98.1 F 03/07/19 06:43 Pulse 56 L 03/07/19 06:43 Resp 18 03/07/19 06:43 BP 132/70 03/07/19 08:39 Pulse Ox 96 03/07/19 06:43 Weight: 178 lb 8 oz - Exam Quality Assessment: Supplemental Oxygen General: Alert, Oriented, Cooperative HEENT: Mucosa Moist & [place] Lungs: Clear to Auscultation, Normal Respiratory Effort Cardiovascular: Regular Rate, Regular Rhythm GI/Abdominal Exam: Normal Bowel Sounds, Soft, Non-Tender, No Organomegaly, No Distention, No Abnormal Bruit, No Mass, Pelvis Stable (Male) Exam: Deferred Rectal (Males) Exam: Deferred Back Exam: No: CVA Tenderness (L), CVA Tenderness (R) Extremities: No Pedal Edema Peripheral Pulses: 2+: Radial (L), Radial (R) Skin: Warm, Dry, Intact Neurological: Cranial Nerves Intact, Reflexes Equal Bilateral Neuro Extensive - Mental Status: Alert, Oriented x3, Normal Mood/Affect, Normal Cognition Neuro Extensive - Motor, Sensory, Reflexes: CN II-XII Intact, Normal Gait, Normal Reflexes Psychiatric: Alert, Normal Affect, Normal Mood - Patient Data Lab Results Last 24 hrs: Laboratory Results - last 24 hr 03/06/19 03/07/19 03/07/19 Range/Units 22:00 06:32 07:17 WBC 10.47 H (5.00-10.00) 10^3/uL RBC 4.24 L (4.50-6.00) 10^6/uL Hgb 12.8 L (13.0-17.0) g/dL Hct 37.9 L (40.0-52.0) % MCV 89.4 (82.0-92.0) fL MCH 30.2 (27.0-31.0) pg MCHC 33.8 (32.0-36.0) g/dL RDW 12.4 (11.5-14.5) % Plt Count 128 L (150-400) 10^3/uL MPV 11.0 H (7.4-10.4) fL Immature Gran % (Auto) 0.2 (0.0-5.0) % Neut % (Auto) 85.7 H (50.0-70.0) % Lymph % (Auto) 8.4 L (20.0-40.0) % [place] % (Auto) 4.5 (2.0-8.0) % Eos % (Auto) 1.0 (1.0-3.0) % Baso % (Auto) 0.2 (0.0-1.0) % Immature Gran # (Auto) 0.02 (0.00-0.50) 10^3/uL Neut # (Auto) 8.98 H (2.50-7.00) 10^3/uL Lymph # (Auto) 0.88 L (1.00-4.00) 10^3/uL [place]ison # (Auto) 0.47 (0.10-0.80) 10^3/uL Eos # (Auto) 0.10 (0.10-0.30) 10^3/uL Baso # (Auto) 0.02 (0.00-0.10) 10^3/uL POC Glucose 125 H 136 H (74-106) mg/dl Result Diagrams: 03/07/19 07:17 03/06/19 07:45 Vern Results Last 24 hrs: Microbiology 03/06/19 08:10 Influenza Type A Antigen Screen - Final Nasal, Unspecified NEGATIVE INFLUENZA A VIRUS AG REFERENCE RANGE: NEGATIVE Influenza Type B Antigen Screen - Final NEGATIVE INFLUENZA B VIRUS AG REFERENCE RANGE: NEGATIVE Sepsis Event Note - Evaluation Sepsis Screening Result: No Definite Risk - Focused Exam Vital Signs: Vital Signs Temp Pulse Resp BP BP Pulse Ox 03/07/19 08:39 132/70 03/07/19 06:43 98.1 F 56 L 18 111/63 96 03/07/19 03:00 97.2 F 59 L 18 107/58 L 96 03/06/19 23:12 98.1 F 66 20 129/67 96 Date Exam was Performed: 03/07/19 Time Exam was Performed: 10:29 Problem List Initiated/Reviewed/Updated: Yes Orders Last 24hrs: Active Orders 24 hr Category Date Time Status Patient Status [ADT] Routine ADT 03/06/19 11:31 Active Blood Glucose Check, Bedside [RC] TIDAC Care 03/06/19 22:05 Active Height and Weight [RC] UPON Care 03/06/19 11:30 Active May Shower [RC] ASDIRECTED Care 03/06/19 11:30 Active Oxygen Therapy [RC] ASDIRECTED Care 03/06/19 10:11 Active Oxygen Therapy [RC] PRN Care 03/06/19 11:31 Active Ready for Discharge [RC] PER UNIT ROUTINE Care 03/07/19 10:14 Ordered Up ad Deedee [RC] ASDIRECTED Care 03/06/19 11:30 Active Up to Chair [RC] ASDIRECTED Care 03/06/19 11:30 Active VTE/DVT Education [RC] PER UNIT ROUTINE Care 03/06/19 11:31 Active Vital Signs [RC] 0300,0700,1100,1500,1900,2100 Care 03/06/19 11:31 Active Heart Healthy Diet [DIET] Diet 03/06/19 Lunch Active RESPIRATORY CULT [MREF] Stat Lab 03/06/19 14:00 Received Aspirin [Halfprin] Med 03/06/19 14:45 Active 81 mg PO DAILY Empagliflozin [Jardiance] Med 03/06/19 14:45 Pending 10 mg PO DAILY Insulin Glarg,Human.Rec.Analog [LantUS Solostar] Med 03/07/19 09:00 Active 18 units SUBCUT QAM Nitroglycerin [Nitrostat] Med 03/06/19 14:45 Active 0.4 mg SL ASDIRECTED Omeprazole Med 03/07/19 09:00 Active 20 mg PO DAILY Ondansetron [Zofran ODT] Med 03/06/19 11:30 Active 4 mg PO Q4H PRN Sodium Chloride 0.9% [Saline Flush] Med 03/06/19 11:30 Active 10 ml FLUSH Q8HR PRN atorvaSTATin [Lipitor] Med 03/06/19 14:45 Active 20 mg PO DAILY glipiZIDE [Glucotrol] Med 03/06/19 14:45 Active 5 mg PO DAILY lisinopriL [Prinivil] Med 03/07/19 09:00 Active 5 mg PO DAILY Saline Lock Insert [OM.PC] Routine Oth 03/06/19 11:30 Ordered Resuscitation Status Routine Resus Stat 03/06/19 11:30 Ordered Medication Orders Aspirin (Halfprin) 81 mg PO DAILY [facility] Last Admin: 03/07/19 08:39 Dose: 81 mg Admin: 03/06/19 16:54 Dose: Atorvastatin Calcium (Lipitor) 20 mg PO DAILY [facility] Last Admin: 03/07/19 08:39 Dose: 20 mg Admin: 03/06/19 16:54 Dose: Glipizide (Glucotrol) 5 mg PO DAILY [facility] Last Admin: 03/07/19 08:40 Dose: 5 mg Admin: 03/06/19 16:53 Dose: Insulin Glargine (Lantus Solostar) 18 units SUBCUT QAM [facility] Last Admin: 03/07/19 08:21 Dose: 18 units Lisinopril (Prinivil) 5 mg PO DAILY [facility] Last Admin: 03/07/19 08:39 Dose: 5 mg Nitroglycerin (Nitrostat) 0.4 mg SL ASDIRECTED [facility] Non-Formulary Medication (Empagliflozin [Jardiance]) 10 mg PO DAILY [facility] Omeprazole (Omeprazole) 20 mg PO DAILY [facility] Last Admin: 03/07/19 08:39 Dose: 20 mg Ondansetron HCl (Zofran Odt) 4 mg PO Q4H PRN PRN Reason: nausea, able to take PO Sodium Chloride (Saline Flush) 10 ml FLUSH Q8HR PRN PRN Reason: keep vein open Assessment/Plan Comment:: History of present illness Mr Alcaraz is a 63-year-old pleasant gentleman who was in normal state of health however was admitted through the ED when he came in initially due to left sided chest pain and shortness of breath which began around 1 am the day of admission. Pt reported he had came home from work after feeling fine had supper and went to bed only to wake in the middle of the night with chills, mild shortness of breath and left sided chest pain. Pt reported once he was started on oxygen he felt better. Pt with history of pneumonia with bacteremia back in July [address] [facility]. Pt with history of CAD with stents. ED work-up/findings temp of 102 in ER. Pt denies cough, hemoptysis, nausea/vomiting or lightheadedness.. X-ray, mild to moderate left infiltrates throughout Lactic acid 1.3, creatinine 1.23 Negative troponin Primary hospital problems Pneumonia, community-acquired, left. Ceftriaxone 1 g daily Disposition Continue inpatient stay as patient high risk for sepsis due to history Incentive spirometer Pulmonary toileting Assess pneumococcal vaccination status - Mortality Measure Prognosis:: Good
== END 2019-03-07 11:30 | disposition home or self-care (01) | DRG 195 ==
LOC: KA.ED 07:25 → KA.MS 09:06
PROVIDERS: ADMIT Nurse Practitioner Family; ATTEND Family Medicine
DX: J18.9 Pneumonia, unspecified organism (principal); K21.9 Gastro-esophageal reflux disease without esophagitis; E11.9 Type 2 diabetes mellitus without complications; I25.2 Old myocardial infarction; Z95.5 Presence of coronary angioplasty implant and graft; Z98.49 Cataract extraction status, unspecified eye; Z79.82 Long term (current) use of aspirin; Z79.899 Other long term (current) drug therapy; Z79.84 Long term (current) use of oral hypoglycemic drugs; Z90.49 Acquired absence of other specified parts of digestive tract
CPT/HCPCS: 36415; 71046; 80053; 81001; 82962; 83605; 84484; 85025; 86140; 87040; 87070; 87077; 87205; 87804; 93005; 96360; 99285-25; A9270-GY; J0696; J1815-GY; J7030; J7613-GY

== ENCOUNTER 2024-06-03 07:01 | Day surgery (SDC) | payer OTHER ==
[~2024-06-03 07:01] MED LIST: Sodium Chloride 0.9% 10 ML Syringe FLUSH PRN
[2024-06-03] MEDS: Sodium Chloride 0.9% 1,000 ML IV SCH (07:45)
[2024-06-03] MEDS ORDERED: Midazolam 1 MG/ML 2 ML SDV ONE (08:02)
[2024-06-03] MEDS ORDERED: Propofol 200 MG/20 ML SDV ONE (08:02)
[2024-06-03 11:00] VITALS: BP 181/91; PULSE 56
== END 2024-06-03 10:27 | disposition home or self-care (01) ==
LOC: KA.SDS 07:01
PROVIDERS: ATTEND Family Medicine
DX: Z12.11 Encounter for screening for malignant neoplasm of colon (principal); K57.30 Diverticulosis of large intestine without perforation or abscess without bleeding; K64.8 Other hemorrhoids; I10 Essential (primary) hypertension; E11.9 Type 2 diabetes mellitus without complications; K21.9 Gastro-esophageal reflux disease without esophagitis; Z79.84 Long term (current) use of oral hypoglycemic drugs; Z79.899 Other long term (current) drug therapy
CPT/HCPCS: 00812; 82947; J2250; J2704; J7030

== ENCOUNTER 2024-10-01 10:25 | Emergency (ER) | payer OTHER ==
[2024-10-01 10:52] LABS: BASOPHILS ABSOLUTE AUTO 0.02 10^3/uL (0.00-0.10); BASOPHILS PERCENT AUTO 0.5 % (0.0-1.0); EOSINOPHILS ABSOLUTE AUTO 0.12 10^3/uL (0.10-0.30); EOSINOPHILS PERCENT AUTO 2.9 % (1.0-3.0); IMMATURE GRAN ABSOLUTE AUTO 0.01 10^3/uL (0.00-0.04); IMMATURE GRAN PERCENT AUTO 0.2 % (0.0-0.4); LYMPHOCYTES ABSOLUTE AUTO 1.05 10^3/uL (1.00-4.00); LYMPHOCYTES PERCENT AUTO 25.5 % (20.0-40.0); MEAN PLATELET VOLUME 10.0 fL (7.4-10.4); MONOCYTES ABSOLUTE AUTO 0.32 10^3/uL (0.10-0.80); MONOCYTES PERCENT AUTO 7.8 % (2.0-8.0); NEUTROPHILS ABSOLUTE AUTO 2.59 10^3/uL (2.50-7.00); NEUTROPHILS PERCENT AUTO 63.1 % (50.0-70.0); PLATELET COUNT,PLT 134 10^3/uL (150-400); RED BLOOD CELL COUNT 4.60 10^6/uL (4.50-6.00); RED CELL DISTRIBUTION WIDTH 12.4 % (11.5-14.5); WHITE BLOOD CELL COUNT,WBC 4.11 10^3/uL (5.00-10.00)
[2024-10-01 10:55] LABS: ALANINE AMINOTRANSFERASE,ALT 36 U/L (14-63); ASPARTATE AMNIOTRANSFERASE,AST 35 U/L (15-37); BILIRUBIN TOTAL 0.4 mg/dL (0.2-1.0); BLOOD UREA NITROGEN,BUN 17 mg/dL (7-18); CARBON DIOXIDE,CO2 31.9 mmol/L (21.0-32.0); CHLORIDE,CL 104 mmol/L (98-107); CREATININE 0.97 mg/dL (0.51-1.17); ESTIMATED GFR 83 mL/min (>=60); GLUCOSE RANDOM 163 mg/dL (70-140); POTASSIUM,K 4.3 mmol/L (3.5-5.1); PROTEIN TOTAL,TP 6.6 g/dL (6.4-8.2); SODIUM,NA 142 mmol/L (136-145)
== END 2024-10-01 14:40 ==
LOC: KA.ED 10:25
DX: I20.0 Unstable angina (principal); E11.8 Type 2 diabetes mellitus with unspecified complications; I10 Essential (primary) hypertension; E78.00 Pure hypercholesterolemia, unspecified; Z79.82 Long term (current) use of aspirin; Z79.899 Other long term (current) drug therapy; Z79.4 Long term (current) use of insulin; Z79.84 Long term (current) use of oral hypoglycemic drugs; Z90.49 Acquired absence of other specified parts of digestive tract
CPT/HCPCS: 36415; 80053; 84484; 85025; 99285; A9270

== ENCOUNTER 2024-10-13 08:20 | Emergency (ER) | payer OTHER ==
[2024-10-13] MEDS ORDERED: Sodium Chloride 0.9% 10 ML Syringe FLUSH PRN (08:39)
[2024-10-13 08:42] LABS: BASOPHILS ABSOLUTE AUTO 0.05 10^3/uL (0.00-0.10); BASOPHILS PERCENT AUTO 0.7 % (0.0-1.0); EOSINOPHILS ABSOLUTE AUTO 0.13 10^3/uL (0.10-0.30); EOSINOPHILS PERCENT AUTO 1.8 % (1.0-3.0); IMMATURE GRAN ABSOLUTE AUTO 0.02 10^3/uL (0.00-0.04); IMMATURE GRAN PERCENT AUTO 0.3 % (0.0-0.4); LYMPHOCYTES ABSOLUTE AUTO 1.02 10^3/uL (1.00-4.00); LYMPHOCYTES PERCENT AUTO 14.3 % (20.0-40.0); MEAN PLATELET VOLUME 10.1 fL (7.4-10.4); MONOCYTES ABSOLUTE AUTO 0.78 10^3/uL (0.10-0.80); MONOCYTES PERCENT AUTO 10.9 % (2.0-8.0); NEUTROPHILS ABSOLUTE AUTO 5.15 10^3/uL (2.50-7.00); NEUTROPHILS PERCENT AUTO 72.0 % (50.0-70.0); PLATELET COUNT,PLT 327 10^3/uL (150-400); RED BLOOD CELL COUNT 2.98 10^6/uL (4.50-6.00); RED CELL DISTRIBUTION WIDTH 12.8 % (11.5-14.5); WHITE BLOOD CELL COUNT,WBC 7.15 10^3/uL (5.00-10.00)
[2024-10-13 08:56] LABS: ALANINE AMINOTRANSFERASE,ALT 29.0 U/L (14-63); ASPARTATE AMNIOTRANSFERASE,AST 23.0 U/L (15-37); BILIRUBIN TOTAL 1.2 mg/dL (0.2-1.0); BLOOD UREA NITROGEN,BUN 21.0 mg/dL (7-18); CARBON DIOXIDE,CO2 27.7 mmol/L (21.0-32.0); CHLORIDE,CL 102.0 mmol/L (98-107); CREATININE 1.36 mg/dL (0.51-1.17); EST CRCL DRUG DOSING (CG) 54.68 mL/min; GLUCOSE RANDOM 132.0 mg/dL (70-140); POTASSIUM,K 4.8 mmol/L (3.5-5.1); PROTEIN TOTAL,TP 6.4 g/dL (6.4-8.2); SODIUM,NA 141.0 mmol/L (136-145)
[2024-10-13 08:58] LABS: ESTIMATED GFR 56.0 mL/min (>=60)
== END 2024-10-13 09:25 ==
LOC: KA.ED 08:23
DX: J90 Pleural effusion, not elsewhere classified (principal); Z95.1 Presence of aortocoronary bypass graft; Z79.82 Long term (current) use of aspirin; Z79.899 Other long term (current) drug therapy
CPT/HCPCS: 36415; 71045; 80053; 83880; 84484; 85025; 93010; 96374; 99284; 99285-25; J2270